=== PATIENT | female | born 1995 | race Caucasian/White ===

== ENCOUNTER 2017-01-03 02:52 | Emergency (ER) | payer OTHER ==
[~2017-01-03 02:52] MED LIST: ALBU1AER INH
[2017-01-03 02:58] VITALS: BP 105/58; PULSE 85; RESP 18; TEMP 98; O2SAT 98
[2017-01-03] MEDS ORDERED: MORPHINE SULFATE 4 MG/ML INJ IV ONE (03:15)
[2017-01-03] MEDS ORDERED: ONDANSETRON HCL 4 MG/2 ML VIAL IV PUSH ONE (03:15)
[2017-01-03] MEDS ORDERED: methylPREDNISolone SOD SUCC 125 MG/2 ML VIAL IVP ONE (03:15)
[2017-01-03] MEDS ORDERED: SODIUM CHLORIDE 0.9% FLUSH 10 ML FLUSH IVF PRN (03:15)
--- NOTE | 2017-01-03 03:16 | PD ---
HPI . Chest pain Chief Complaint: Respiratory Distress Time Seen by Provider: 03:08 Travel History International Travel<30 days: No Contact w/Intl Traveler<30days: No Traveled to known affect area: No History of Present Illness HPI Patient presents to us by [facility] with the chief complaint of chest pain which awakened her from sleep. She states that that was about an hour and a half ago. She describes a sharp pain in the center of her chest. She states that it is "unbearable.". She states he is exacerbated by breathing. It is associated with a cough which started about the same time. The cough is nonproductive. She has not been running a fever. Patient reports a history of "bronchitis." She states that she has not used an inhaler in several months. [facility] Past Medical History Medical History: Denies Significant Hx ADHD: No Weight (Kg): 2 Cancer: No Cardiovascular Problems: No Diabetes: No Diminished Hearing: No Headaches: No Psychiatric: No Immunizations Current: Yes Migraines: No Seizures: No Thyroid Disease: No Ulcer: No Tetanus Vaccination: Never Vaccinated ?: Not LMP: 01/03/17 Past Surgical History Surgical History: No Previous Surgery Section: Yes Other Surgery: No Social History Alcohol Use: No Tobacco Use: No (quit last year) Substance Use: No (DENIES BUT HAS H/O) Allergies-Medications (Allergen,Severity, Reaction): Coded Allergies: Penicillin (Unverified Allergy, Unknown, 01/03/17) Reported Meds & Prescriptions Reported Meds & Active Scripts Active Review of Systems Except as stated in HPI: all other systems reviewed are Neg General / Constitutional: No: Fever, Chills Cardiovascular: Positive: Chest Pain or Discomfort Respiratory: Positive: Cough Physical Exam Narrative GENERAL: Very persistent asthmatic sounding cough. SKIN: Warm and dry. HEAD: Atraumatic. Normocephalic. EYES: Pupils equal and round. Extraocular movements are intact. ENT: No nasal bleeding or discharge. Mucous membranes pink and moist. NECK: Trachea midline. Neck is supple. CARDIOVASCULAR: Regular rate and rhythm. Heart sounds are normal. RESPIRATORY: No accessory muscle use. Her lungs sounded clear. Chest wall is tender to palpation. GASTROINTESTINAL: Abdomen soft, non-tender, nondistended. MUSCULOSKELETAL: No obvious deformities. No edema. NEUROLOGICAL: Awake and alert. No obvious cranial nerve deficits. Motor grossly within normal limits. Normal speech. PSYCHIATRIC: Appropriate mood and affect; insight and judgment normal. Data Data Last Documented VS Vital Signs Date Time Temp Pulse Resp B/P Pulse Ox O2 Delivery O2 Flow Rate FiO2 01/03/17 05:00 Room Air 01/03/17 04:53 92 108/65 97 01/03/17 03:25 19 01/03/17 02:58 98.0 Orders Basic Metabolic Panel (Bmp) (01/03/17 03:08) Complete Blood Count With Diff (01/03/17 03:08) Iv Access Insert/Monitor (01/03/17 03:08) Oximetry (01/03/17 03:08) Oxygen Administration (01/03/17 03:08) Methylprednisolone So Succ Inj (Solumedr (01/03/17 03:15) Albuterol-Ipratropium Neb (Duoneb Neb) (01/03/17 03:15) Sodium Chloride 0.9% Flush (Ns Flush) (01/03/17 03:15) Morphine Inj (Morphine Inj) (01/03/17 03:15) Ondansetron Inj (Zofran Inj) (01/03/17 03:15) Ct Pulmonary Angiogram (01/03/17 03:08) Ed Urine Pregnancytest Poc (01/03/17 03:08) Iohexol 350 Inj (Omnipaque 350 Inj) (01/03/17 04:36) Ketorolac Inj (Toradol Inj) (01/03/17 05:00) Labs Laboratory Tests Test 01/03/17 03:00 White Blood Count 9.2 TH/MM3 Red Blood Count 5.13 MIL/MM3 Hemoglobin 15.2 GM/DL Hematocrit 44.9 % Mean Corpuscular Volume 87.5 FL Mean Corpuscular Hemoglobin 29.6 PG Mean Corpuscular Hemoglobin 33.8 % Concent Red Cell Distribution Width 13.1 % Platelet Count 303 TH/MM3 Mean Platelet Volume 8.3 FL Neutrophils (%) (Auto) 55.2 % Lymphocytes (%) (Auto) 36.1 % Monocytes (%) (Auto) 4.7 % Eosinophils (%) (Auto) 3.1 % Basophils (%) (Auto) 0.9 % Neutrophils # (Auto) 5.1 TH/MM3 Lymphocytes # (Auto) 3.3 TH/MM3 Monocytes # (Auto) 0.4 TH/MM3 Eosinophils # (Auto) 0.3 TH/MM3 Basophils # (Auto) 0.1 TH/MM3 CBC Comment DIFF FINAL Differential Comment Sodium Level 143 MEQ/L Potassium Level 3.5 MEQ/L Chloride Level 108 MEQ/L Carbon Dioxide Level 25.1 MEQ/L Anion Gap 10 MEQ/L Blood Urea Nitrogen 7 MG/DL Creatinine 0.95 MG/DL Estimat Glomerular Filtration 76 ML/MIN Rate Random Glucose 108 MG/DL Calcium Level 9.1 MG/DL MDM Medical Decision Making Medical Screen Exam Complete: Yes Emergency Medical Condition: Yes Medical Record Reviewed: Yes (records reveal a history of asthma. She was here in the fall with an exacerbation of asthma. Admission was recommended. However, she signed out AMA.) Differential Diagnosis Differential diagnosis of chest pain includes but is not limited to musculoskeletal pain, pulmonary embolism, acute coronary syndrome, pneumonia, pleurisy Narrative Course Patient presents to us via [facility] with chief complaint of chest pain. She reports that the pain is exacerbated by breathing. The patient has a very persistent cough. She also has tenderness to palpation. I suspect that her chest pain is musculoskeletal related to the cough. She will be evaluated for possible pneumonia, pneumothorax, pulmonary embolism. In the meantime, she will be treated for bronchospasm with nebs and steroids. CBC & BMP Diagram 01/03/17 03:[address] Angiography 01/03/17 0308 Signed Impressions: Service Date/Time: Tuesday, January 03, 2017 04:16 - CONCLUSION: 1. No evidence of pulmonary embolism. Naresh Tolbert MD Diagnosis Primary Impression: Chest wall pain Additional Impression: Bronchospasm Patient Instructions: Bronchospasm (DC), Chest Wall Pain (ED), General Instructions, Narcotic given in the ED Med/Other Pt SpecificInfo: Prescription(s) given Scripts Tramadol (Ultram)50 Mg Tab50 Mg PO Q4H PRN (PAIN) #12 TAB Ref 0 Prov:Hilary German MD 01/03/17 Ibuprofen 800 Mg Ecr455 Mg PO Q8H PRN (Pain/Inflammation) #60 TAB Ref 0 Prov:Hilary German MD 01/03/17 Prednisone 20 Mg Tab60 Mg PO DAILY 5 Days Ref 0 Prov:Hilary German MD 01/03/17 Albuterol 18 GM Inh (Ventolin Hfa 18 GM Inh)90 Mcg/Act Aer2 Puff INH Q4H PRN ( SHORTNESS OF BREATH) #1 INHALER Ref 0 Prov:Hilary German MD 01/03/17 Disposition: 01 DISCHARGE HOME Condition: Stable Hilary German MD January 03, 2017 03:16
[2017-01-03] MEDS: RESP: ALBUTEROL 2.5 MG/IPRATROPIUM 0.5 MG NEB (SCH) INH ×3 (03:18→03:34)
[2017-01-03 03:25] VITALS: BP 107/57; PULSE 77; RESP 19; O2SAT 99
[2017-01-03 03:48] LABS: AUTOMATED NEUTROPHIL # 5.1 TH/MM3 (1.8-7.7); BASOPHIL # 0.1 TH/MM3 (0-0.2); BASOPHIL % 0.9 % (0.0-2.0); EOSINOPHIL # 0.3 TH/MM3 (0-0.4); EOSINOPHIL % 3.1 % (0.0-4.0); HEMATOCRIT 44.9 % (35.0-46.0); HEMO FLAGS DIFF FINAL; LYMPH % 36.1 % (9.0-44.0); LYMPHOCYTE # 3.3 TH/MM3 (1.0-4.8); MEAN CELL VOLUME 87.5 FL (80.0-100.0); MEAN CORPUSCULAR HEMOGLOBIN 29.6 PG (27.0-34.0); MEAN CORPUSCULAR HGB CONC 33.8 % (32.0-36.0); MONO % 4.7 % (0.0-8.0); NEUT % 55.2 % (16.0-70.0); PLATELET COUNT 303 TH/MM3 (150-450); RED BLOOD COUNT 5.13 MIL/MM3 (4.00-5.30); RED CELL DISTRIBUTION WIDTH 13.1 % (11.6-17.2); WHITE BLOOD COUNT 9.2 TH/MM3 (4.0-11.0)
[2017-01-03 04:01] LABS: POTASSIUM 3.5 MEQ/L (3.5-5.1)
[2017-01-03 04:04] LABS: BICARBONATE 25.1 MEQ/L (21.0-32.0)
[2017-01-03] MEDS ORDERED: IOHEXOL 350 MG/ML 10 ML VIAL (for RAD DIAG) IV ONE (04:36)
[2017-01-03 04:53] VITALS: BP 108/65; PULSE 92; O2SAT 97
[2017-01-03] MEDS ORDERED: KETOROLAC TROMETHAMINE 30 MG/ML (IVP) VIAL IV PUSH ONE (05:00)
--- NOTE | 2017-01-03 05:09 | RADHPO ---
EXAM DATE/TIME: 01/03/2017 04:16 [place] COMPARISON: No previous studies available for comparison. INDICATIONS : Shortness of breath. Chest pain. IV CONTRAST: 75 cc Omnipaque 350 (iohexol) IV RADIATION DOSE: 19.73 CTDIvol (mGy) MEDICAL HISTORY : None SURGICAL HISTORY : None. ENCOUNTER: Initial ACUITY: 1 day PAIN SCALE: 9/10 LOCATION: chest Mid TECHNIQUE: Volumetric scanning of the chest was performed using a pulmonary embolism protocol MIP images were re constructed. Using automated exposure control and adjustment of the mA and/or kV according to patien t size, radiation dose was kept as low as reasonably achievable to obtain optimal diagnostic quality images. FINDINGS: Examination of the pulmonary vasculature demonstrates good filling of the main, lobar and segmental b ranches. There are no filling defects to suggest pulmonary embolism. Multiplanar reconstructions are also unremarkable. Examination of the lung rai demonstrates no evidence of pulmonary nodule. No pleural fluid is iden tified. Examination of the mediastinum demonstrates no abnormally enlarged lymph nodes by CT criteria . No axillary or hilar abnormalities are identified. Coronary artery calcifications are not present. The visualized upper abdomen demonstrates no abnormality. CONCLUSION: 1. No evidence of pulmonary embolism. Naresh Tolbert MD on January 03, 2017 at 5:06 Board Certified Radiologist. This report was verified electronically.
[2017-01-03] MEDS ORDERED: VENTAER INH (05:31)
[2017-01-03] MEDS ORDERED: PRED20 PO (05:31)
[2017-01-03] MEDS ORDERED: IBUP800T23 PO (05:31)
[2017-01-03] MEDS ORDERED: ULTR50TA5 PO (05:31)
[2017-01-03 05:39] VITALS: BP 113/50
== END 2017-01-03 05:47 | disposition home or self-care (01) ==
LOC: PHED 02:52
DX: R07.89 Other chest pain (principal); J98.01 Acute bronchospasm; R05 Cough; Z87.891 Personal history of nicotine dependence
CPT/HCPCS: 71275; 80048; 84703; 85025; 94640; 94664; 96374; 96375; 99284; J1885; J2270; J2405; J2930; Q9967

== ENCOUNTER 2017-01-29 12:37 | Emergency (ER) | payer OTHER ==
[~2017-01-29] VITALS: Ht 162.6 cm; Wt 97.5 kg
[~2017-01-29 12:37] MED LIST changes: -ALBU1AER INH; +IBUP800T23 PO; +PRED20 PO; +ULTR50TA5 PO; +VENTAER INH
[2017-01-29 12:40] VITALS: BP 131/66; PULSE 77; RESP 15; TEMP 97.8; O2SAT 99
[2017-01-29 13:25] LABS: BLOOD, URINE LARGE (NEG); GLUCOSE,URINE NEG (NEG); KETONE, URINE TRACE mg/dL (NEG); NITRITE,URINE NEG (NEG)
--- NOTE | 2017-01-29 13:49 | PD ---
HPI Chief Complaint: Abdominal Pain Time Seen by Provider: 12:51 Travel History International Travel<30 days: No Contact w/Intl Traveler<30days: No Traveled to known affect area: No History of Present Illness HPI 21-year-old female complains of generalized abdominal pain for a few days. She had blood in her urine for 2 days as well. She describes it as a dark red color. When mixed with stool it appears as though the stool itself is blood noted. She denies an association with menstruation and the apparent hematuria. LMP 2.5 weeks prior was normal. Blood appeared very dark this morning states patient. PFSH Past Medical History ADHD: No Weight (Kg): 2 Cancer: No Cardiovascular Problems: No Diabetes: No Diminished Hearing: No Headaches: No Kidney Stones: Yes Psychiatric: No Immunizations Current: Yes Migraines: No Seizures: No Thyroid Disease: No Ulcer: No Tetanus Vaccination: Unknown Influenza Vaccination: No ?: Unknown LMP: 2.5 WEEKS Past Surgical History Section: Yes Other Surgery: No Social History Alcohol Use: No Tobacco Use: Yes (1PPWEEK) Substance Use: No (DENIES BUT HAS H/O) Allergies-Medications (Allergen,Severity, Reaction): Coded Allergies: Penicillin (Unverified Allergy, Unknown, 01/29/17) Reported Meds & Prescriptions Reported Meds & Active Scripts Active Bentyl (Dicyclomine HCl) 10 Mg Cap 10 Mg PO TID PRN Review of Systems Except as stated in HPI: all other systems reviewed are Neg General / Constitutional: No: Fever, Chills Gastrointestinal: Positive: Abdominal Pain Genitourinary: Positive: Hematuria Physical Exam Narrative GENERAL: 21 yo F, WNWD, NAD SKIN: Warm and dry. HEAD: Atraumatic. Normocephalic. EYES: Pupils equal and round. No scleral icterus. No injection or drainage. ENT: No nasal bleeding or discharge. Mucous membranes pink and moist. NECK: Trachea midline. No JVD. CARDIOVASCULAR: Regular rate and rhythm. RESPIRATORY: No accessory muscle use. Clear to auscultation. Breath sounds equal bilaterally. GASTROINTESTINAL: Soft. Mild generalized non-specific abdominal tenderness. Minimal TTP L flank. MUSCULOSKELETAL: Extremities without clubbing, cyanosis, or edema. No obvious deformities. NEUROLOGICAL: Awake and alert. No obvious cranial nerve deficits. Motor grossly within normal limits. Five out of 5 muscle strength in the arms and legs. Normal speech. PSYCHIATRIC: Appropriate mood and affect; insight and judgment normal. Data Data Last Documented VS Vital Signs Date Time Temp Pulse Resp B/P Pulse Ox O2 Delivery O2 Flow Rate FiO2 01/29/17 13:02 16 01/29/17 12:40 97.8 77 131/66 99 VS reviewed Orders Urinalysis - C+S If Indicated (01/29/17 12:53) Ed Urine Pregnancytest Poc (01/29/17 13:39) Complete Blood Count With Diff (01/29/17 13:57) Comprehensive Metabolic Panel (01/29/17 13:57) Iv Access Insert/Monitor (01/29/17 13:57) Ecg Monitoring (01/29/17 13:57) Oximetry (01/29/17 13:57) Sodium Chlor 0.9% 1000 Ml Inj (Ns 1000 M (01/29/17 13:57) Sodium Chloride 0.9% Flush (Ns Flush) (01/29/17 14:00) Labs Laboratory Tests Test 01/29/17 01/29/17 13:19 14:05 Urine Collection Type CLEAN CATCH Urine Color BROWN Urine Turbidity MARKED Urine pH 5.0 Urine Specific [place] 1.020 Urine Protein 100 mg/dL Urine Glucose (UA) NEG mg/dL Urine Ketones TRACE mg/dL Urine Occult Blood LARGE Urine Nitrite NEG Urine Bilirubin NEG Urine Leukocyte Esterase NEG Urine RBC INNUM /hpf Urine Squamous Epithelial 6-8 /hpf Cells Urine Amorphous Sediment MOD Microscopic Urinalysis Comment CULT NOT INDICATED Urine Collection Time 1319 White Blood Count 7.4 TH/MM3 Red Blood Count 4.69 MIL/MM3 Hemoglobin 14.1 GM/DL Hematocrit 41.0 % Mean Corpuscular Volume 87.4 FL Mean Corpuscular Hemoglobin 30.0 PG Mean Corpuscular Hemoglobin 34.3 % Concent Red Cell Distribution Width 12.5 % Platelet Count 237 TH/MM3 Mean Platelet Volume 8.0 FL Neutrophils (%) (Auto) 61.6 % Lymphocytes (%) (Auto) 29.5 % Monocytes (%) (Auto) 6.5 % Eosinophils (%) (Auto) 1.7 % Basophils (%) (Auto) 0.7 % Neutrophils # (Auto) 4.4 TH/MM3 Lymphocytes # (Auto) 2.2 TH/MM3 Monocytes # (Auto) 0.5 TH/MM3 Eosinophils # (Auto) 0.1 TH/MM3 Basophils # (Auto) 0.1 TH/MM3 CBC Comment DIFF FINAL Differential Comment Sodium Level 142 MEQ/L Potassium Level 3.9 MEQ/L Chloride Level 111 MEQ/L Carbon Dioxide Level 23.9 MEQ/L Anion Gap 7 MEQ/L Blood Urea Nitrogen 8 MG/DL Creatinine 0.79 MG/DL Estimat Glomerular Filtration 94 ML/MIN Rate Random Glucose 96 MG/DL Calcium Level 8.9 MG/DL Total Bilirubin 0.3 MG/DL Aspartate Amino Transf 15 U/L (AST/SGOT) Alanine Aminotransferase 32 U/L (ALT/SGPT) Alkaline Phosphatase 65 U/L Total Protein 7.1 GM/DL Albumin 3.7 GM/DL MDM Medical Decision Making Medical Screen Exam Complete: Yes Emergency Medical Condition: Yes Medical Record Reviewed: Yes Differential Diagnosis Constipation, Gastritis, Acute Cholecystitis, Biliary Colic, Pancreatitis, ROSAS , Hepatitis, Bowel Obstruction, Cystitis, Mesenteric Ischemia, AAA, Appendicitis , Renal Stone/Hydronephrosis, GERD, perforated viscous Narrative Course CBC & BMP Diagram 01/29/17 14:05 LFTs normal UA: No UTI Upon reassessment at 1500 pt found comfortably sitting. The patient is resting comfortably, is alert and in no distress. The patients results and examination findings were discussed. The history, exam, diagnostic testing, and current condition do not suggest any significant pathology to warrant further testing, continued ED treatment, admission, or surgical evaluation at this point. The vital signs have been stable. The patient does not have uncontrollable pain, intractable vomiting, or other significant symptoms. The patient's condition is stable and appropriate for discharge. The patient will pursue further outpatient evaluation with a primary care physician or other designated or consulting physician as indicated in the discharge instructions. The patient expressed understanding and was agreeable with this plan. Diagnosis Primary Impression: Hematuria Referrals: Primary Care Physician 2 days Additional Instructions: You have a choice when it comes to health care, and we are glad that you chose [facility]. Hopefully, we have met your expectations on today's visit. You are welcome to return to [facility] at any time, as we are committed to meeting the health care needs of our community. Med/Other Pt SpecificInfo: Prescription(s) given Scripts Dicyclomine (Bentyl)10 Mg Cap10 Mg PO TID PRN (Bowel Management) #10 CAP Ref 0 Prov:Guerrero Alegre MD 01/29/17 Disposition: 01 DISCHARGE HOME Condition: Stable Guerrero Alegre MD January 29, 2017 13:49 Guerrero Alegre MD January 29, 2017 13:49 Guerrero Alegre MD January 29, 2017 13:49
[2017-01-29 13:53] LABS: METHOD OF COLLECTION CLEAN CATCH
[2017-01-29 13:54] LABS: COMMENT (UR) CULT NOT INDICATED; CULTURE IF INDICATED CULT NOT INDICATED; RBC, URINE INNUM /hpf (0-3); URINE COLOR BROWN (YELLW/STRAW)
[2017-01-29] MEDS ORDERED: SODIUM CHLOR 0.9% 1000 ML INJ 1,000 ML IV SCH (13:57)
[2017-01-29] MEDS ORDERED: SODIUM CHLORIDE 0.9% FLUSH 10 ML FLUSH IV FLUSH PRN (14:00)
[2017-01-29 14:18] LABS: AUTOMATED NEUTROPHIL # 4.4 TH/MM3 (1.8-7.7); BASOPHIL # 0.1 TH/MM3 (0-0.2); BASOPHIL % 0.7 % (0.0-2.0); EOSINOPHIL # 0.1 TH/MM3 (0-0.4); EOSINOPHIL % 1.7 % (0.0-4.0); HEMO FLAGS DIFF FINAL; LYMPH % 29.5 % (9.0-44.0); LYMPHOCYTE # 2.2 TH/MM3 (1.0-4.8); MEAN CELL VOLUME 87.4 FL (80.0-100.0); MEAN CORPUSCULAR HGB CONC 34.3 % (32.0-36.0); MONO % 6.5 % (0.0-8.0); NEUT % 61.6 % (16.0-70.0); PLATELET COUNT 237 TH/MM3 (150-450); RED BLOOD COUNT 4.69 MIL/MM3 (4.00-5.30); RED CELL DISTRIBUTION WIDTH 12.5 % (11.6-17.2); WHITE BLOOD COUNT 7.4 TH/MM3 (4.0-11.0)
[2017-01-29 14:45] LABS: CHLORIDE 111 MEQ/L (98-107); POTASSIUM 3.9 MEQ/L (3.5-5.1); SODIUM (NA) 142 MEQ/L (136-145)
[2017-01-29 14:48] LABS: ANION GAP 7 MEQ/L (5-15); BICARBONATE 23.9 MEQ/L (21.0-32.0); BLOOD UREA NITROGEN 8 MG/DL (7-18)
[2017-01-29 14:51] LABS: ALT (GPT) 32 U/L (9-42); AST (GOT) 15 U/L (16-38); GLOMERULAR FILTRATION RATE 94 ML/MIN (>89)
[2017-01-29 14:53] LABS: TOTAL BILIRUBIN ADULT 0.3 MG/DL (0.2-1.0)
[2017-01-29 14:54] LABS: ALKALINE PHOSPHATASE 65 U/L (45-117)
[2017-01-29] MEDS ORDERED: DICY10 PO (15:02)
[2017-01-29 15:23] VITALS: BP 105/64; O2SAT 99
== END 2017-01-29 15:34 | disposition home or self-care (01) ==
LOC: PHED 12:37
DX: R31.9 Hematuria, unspecified (principal); F17.200 Nicotine dependence, unspecified, uncomplicated; Z88.0 Allergy status to penicillin
CPT/HCPCS: 80053; 81001; 84703; 85025; 96360; 99284; J7030

== ENCOUNTER 2017-07-14 22:59 | Emergency (ER) | payer MEDICAID, OTHER ==
[~2017-07-14] VITALS: Ht 162.6 cm; Wt 88.9 kg
[~2017-07-14 22:59] MED LIST changes: +DICY10 PO; -IBUP800T23 PO; -PRED20 PO; -ULTR50TA5 PO; -VENTAER INH
[2017-07-14 23:17] VITALS: BP 122/79; PULSE 82; RESP 18; TEMP 98; O2SAT 97
[2017-07-15 00:52] VITALS: BP 119/70; PULSE 75; RESP 18; TEMP 98; O2SAT 98
--- NOTE | 2017-07-15 00:59 | PD ---
HPI Chief Complaint: Respiratory Symptoms Time Seen by Provider: 00:52 Travel History International Travel<30 days: No Contact w/Intl Traveler<30days: No Traveled to known affect area: No History of Present Illness HPI 21 year-old female presents to the emergency department for complaint of shortness of breath with history of asthma. Patient states her shortness of breath and wheezing is not responding to her inhaler which she is use 4 times today. PFSH Past Medical History ADHD: No Cancer: No Cardiovascular Problems: No Diabetes: No Diminished Hearing: No Headaches: No Kidney Stones: Yes Psychiatric: No Immunizations Current: Yes Migraines: No Seizures: No Thyroid Disease: No Ulcer: No Past Surgical History Section: Yes Other Surgery: No Social History Alcohol Use: No Tobacco Use: Yes (1PPWEEK) Substance Use: No (DENIES BUT HAS H/O) Allergies-Medications (Allergen,Severity, Reaction): Coded Allergies: penicillin G (Unverified Allergy, Unknown, 07/15/17) Reported Meds & Prescriptions Reported Meds & Active Scripts Active No Active Prescriptions or Reported Medications Review of Systems Except as stated in HPI: all other systems reviewed are Neg Physical Exam Narrative GENERAL: Well-developed well-nourished female in no acute distress no respiratory distress no stridor or hoarseness SKIN: Warm and dry. HEAD: Normocephalic. EYES: No scleral icterus. No injection or drainage. NECK: Supple, trachea midline. No JVD or lymphadenopathy. CARDIOVASCULAR: Regular rate and rhythm without murmurs, gallops, or rubs. RESPIRATORY: Breath sounds equal bilaterally mildly diminished. No accessory muscle use. GASTROINTESTINAL: Abdomen soft, non-tender, nondistended. MUSCULOSKELETAL: No cyanosis, or edema. BACK: Nontender without obvious deformity. No CVA tenderness. Data Data Last Documented VS Vital Signs Date Time Temp Pulse Resp B/P (MAP) Pulse Ox O2 Delivery O2 Flow Rate FiO2 07/15/17 01:03 18 98 Room Air 07/15/17 00:52 98.0 75 119/70 (86) Orders Orders Ed Urine Pregnancytest Poc (07/15/17 00:52) Albuterol-Ipratropium Neb (Duoneb Neb) (07/15/17 01:00) Albuterol-Ipratropium Neb (Duoneb Neb) (07/15/17 02:45) Prednisone (Deltasone) (07/15/17 02:45) MDM Medical Decision Making Medical Screen Exam Complete: Yes Emergency Medical Condition: Yes Medical Record Reviewed: Yes Interpretation(s) POC hCG negative Differential Diagnosis Dyspnea, exacerbation asthma, bronchitis, pneumonia, PE Narrative Course At 2:30 AM patient is clinically improved although some wheezing persists therefore additional reading treatment administered and patient is stable for outpatient management. [id number] hCG is negative. Patient given an oral dose of prednisone and will be prescribed a Medrol Dosepak at discharge patient has adequate albuterol inhaler quantity available as outpatient medication at this time. Diagnosis Primary Impression: Asthma exacerbation Referrals: Primary Care Physician call for appointment Dinkey Engine Operator call for appointment Patient Instructions: General Instructions Med/Other Pt SpecificInfo: Prescription(s) given Scripts Methylprednisolone Dosepak (Medrol Dosepak) 4 Mg Dspk 4 MG PO DIRECTED, #1 DSPK 0 Refills Per Pharmacist direction Prov: Carmen Thomas MD 07/15/17 Disposition: DISCHARGE HOME Condition: Stable Carmen Thomas MD Jul 15, 2017 00:59
[2017-07-15] MEDS: RESP: ALBUTEROL 2.5 MG/IPRATROPIUM 0.5 MG NEB (SCH) INH ×2 (01:01→01:10)
[2017-07-15 02:38] VITALS: BP 131/82; PULSE 84; RESP 18; O2SAT 97
[2017-07-15] MEDS ORDERED: MEDR4PAK PO (02:38)
[2017-07-15] MEDS ORDERED: RESP: ALBUTEROL 2.5 MG/IPRATROPIUM 0.5 MG NEB (SCH) NEB ONE (02:45)
[2017-07-15] MEDS ORDERED: predniSONE 50 MG TAB PO ONE (02:45)
== END 2017-07-15 03:03 | disposition home or self-care (01) ==
LOC: PHED 22:59
DX: J45.901 Unspecified asthma with (acute) exacerbation (principal); Z72.0 Tobacco use; Z87.09 Personal history of other diseases of the respiratory system; Z87.442 Personal history of urinary calculi
CPT/HCPCS: 84703; 94640; 94664; 99285; J7512

== ENCOUNTER 2018-04-19 06:19 | Observation (INO) ==
[2018-04-19] MEDS ORDERED: MethylPREDNISolone Sod Succinate Inj 125 MG/2 ML Vial IV.PUSH ONE (06:30)
--- NOTE | 2018-04-19 06:37 | ED ---
HPI General Chief Complaint: Respiratory Symptoms Stated Complaint: Hard to breathe x 1 day Time Seen by Provider: 04/19/18 06:31 Source: patient Mode of arrival: ambulatory History of Present Illness HPI Narrative: 22 y/o female notes cough and congestion for the past couple days. she is out of her inhaler MD complaint: shortness of breath Onset (ago): day(s) Severity: moderate Associated symptoms: productive cough Related Data Current Asthma Therapy: none Home Medications Medication Instructions Recorded Confirmed No Known Home Medications 04/19/18 04/19/18 Allergies Allergy/AdvReac Type Severity Reaction Status Date / Time penicillin G Allergy Unknown Rash Verified 04/19/18 10:55 Review of Systems ROS: all other systems reviewed are negative Constitutional Denies fever(s) Eyes Denies change in vision ENT Denies headache(s) and Denies nasal congestion Cardiovascular Denies chest pain Respiratory Denies dyspnea Gastrointestinal Denies abdominal pain Genitourinary Denies difficulty voiding Musculoskeletal Denies myalgias Integumentary/Breasts Denies rash Neurologic Denies headache(s) Psychiatric Denies depression Endocrine Denies polyuria Hematologic/Lymphatic Denies easy bruising [facility] Medical History Medical History Asthma (Acute) Tobacco abuse (Acute) Surgical History Surgical History No history of previous surgery (Acute) Family History Family History Mother History of asthma Social History Social History Substance History: No History of Abuse Second Hand Smoke Exposure: No Smoking Status: Current every day smoker Tobacco Type: Cigarettes Packs Per Day: 0.25 Cigarettes Per Day: 5.0 Years Smoked: 7 Pack-Years: 1.75 How Often Do You Have a Drink Containing Alcohol: Never Recent Travel in [facility] within the Last 8 Weeks: No Recent Out of Country Travel within the Last 8 Weeks: No Exam Const General: no acute distress HENMT Head: normocephalic and atraumatic Nose: no nasal discharge and no epistaxis Mouth: moist mucous membranes Eyes Sclera: normal sclerae Pupils: PERRL Neck Neck: trachea midline and no JVD Resp Effort & Inspection: no use of accessory muscles Auscultation: wheezes Cardio Rate: regular rate Rhythm: regular rhythm Heart Sounds: no murmurs Skin General: dry skin (warm) Neuro General: alert and awake Cranial Nerves: other Speech: speech normal Motor: no movement abnormalities noted Extrem General: normal to inspection, no clubbing, no cyanosis and no edema Psych Mood: congruent mood Affect: normal affect Judgment: judgment good Course Initial Documented Vital Signs Temperature 98.2 F 04/19/18 06:30 Pulse Rate 84 04/19/18 06:30 Respiratory Rate 18 04/19/18 06:30 Blood Pressure 150/85 H 04/19/18 06:30 Pulse Oximetry 93 L 04/19/18 06:30 Last Documented Vital Signs Temperature 98.3 F 04/19/18 20:00 Pulse Rate 117 H 04/19/18 22:09 Respiratory Rate 20 04/19/18 22:09 Blood Pressure 145/66 H 04/19/18 20:00 Pulse Oximetry 93 L 04/19/18 20:00 Sign Out Sign Out Data: Patient Sign Out occurred on 04/19/18 at 06:56. Patient's care was discussed, and care was transferred from Neva Kahn MD to Barbara Gunderson DO. Sign Out Comment: follow workup and reevaluate after nebs and steriods Last updated by Neva Kahn MD at 04/19/18 06:32 Post-Handoff Eval: Received sign out from previous team to reevaluate patient after 2 duonebs and methylprednisolone. Pt is still feeling sob and now saturating at 89-90% on RA. Pt does have mild wheezing but does not feel better after treatment. No PE risk factors but she is hypoxic and CXR is negative. Will do CTA to r/o PE. Labs reviewed, no leukocytosis. H/H elevated at 15.8/46.4. BMP unremarkable. Negative influenza. negative. CTA showed mild patchy bilateral perihilar airspace infiltrates. No PE. Pt reevaluated after 3rd duoneb and still does not feel better. She is saturating at 92-93% on 2L NC. Blood cultures obtain and pt given NS IVF, ceftriaxone and azithromycin. Discussed with Dr. Moe and accepted to his service. Medical Decision Making MDM Narrative Medical decision making narrative: will check labs, cxr and dose with duonebs and solumedrol and reassess Medical Screen Exam Complete: Yes Emergency Medical Condition: Yes Differential Diagnosis Differential Diagnosis: asthma exacerbation, pneumonia, uri Lab Data Result diagrams: 04/19/18 06:40 04/19/18 06:40 Lab Results 04/19/18 04/19/18 Range/Units 06:40 06:40 CBC w Diff Auto diff final WBC 9.4 (4.0-11.0) th/mm3 RBC 5.12 (4.00-5.30) mil/mm3 Hgb 15.8 H (11.6-15.3) gm/dL Hct 46.4 H (35.0-46.0) % MCV 90.6 (80.0-100.0) fL MCH 30.8 (27.0-34.0) pg MCHC 34.0 (32.0-36.0) % RDW 12.3 (11.6-17.2) % Plt Count 252 (150-450) th/mm3 MPV 8.3 (7.0-11.0) fL Neut % (Auto) 67.9 (16.0-70.0) % Lymph % (Auto) 19.7 (9.0-44.0) % [place] % (Auto) 6.7 (0.0-8.0) % Eos % (Auto) 2.7 (0.0-4.0) % Baso % (Auto) 3.0 H (0.0-2.0) % Neut # (Auto) 6.4 (1.8-7.7) th/mm3 Lymph # (Auto) 1.8 (1.0-4.8) th/mm3 [place] # (Auto) 0.6 (0.0-0.9) th/mm3 Eos # (Auto) 0.3 (0.0-0.4) th/mm3 Baso # (Auto) 0.3 H (0.0-0.2) th/mm3 WBC Differential . Differential Comment . Sodium 139 (136-145) meq/L Potassium 4.0 (3.5-5.1) meq/L Chloride 108 H (98-107) meq/L Carbon Dioxide 25.1 (21.0-32.0) meq/L Anion Gap 6 (5-15) meq/L BUN 12 (7-18) mg/dL Creatinine 1.00 (0.50-1.00) mg/dL Estimated GFR 71 L (>89) mL/min Random Glucose 107 H (74-106) mg/dL Calcium 9.5 (8.5-10.1) mg/dL Imaging Data Radiologist's impression: Chest X-Ray 04/19/18 06:30 CONCLUSION: No acute cardiopulmonary process. Chest CTA 04/19/18 07:12 CONCLUSION: 1. Mild patchy bilateral perihilar airspace infiltrates. 2. No evidence of pulmonary embolism Discharge Plan Discharge Disposition Patient Disposition: 30 Still Patient Discharge Order Discharge Orders: AMA Discharge (Routine); Ordered 04/19/18 Ordered By: Darlin Mike Discharge Details Diagnosis: Pneumonia Physicians Team ED Provider: Barbara Gunderson Primary Care Provider: Primary Care Dang Valdez Attending Provider: Lane Moe Status ED Status: Left Department Discharge Information Discharge Date/Time: 04/19/18 10:05
--- NOTE | 2018-04-19 06:44 | XR ---
EXAM DATE: 04/19/2018 6:41 AM EDT AGE/SEX: 22 years / Female INDICATIONS: . Cough, difficulty breathing, chest pain for 3 days CLINICAL DATA: This is the patient's initial encounter. Patient reports that signs and symptoms have been present for 3 days and indicates a pain score of 5/10. MEDICAL/SURGICAL HISTORY: None. None. COMPARISON: No prior exams available for comparison. FINDINGS: PA and lateral views of the chest demonstrate the lungs to be symmetrically aerated without evidence of mass, infiltrate or effusion. The cardiomediastinal contours are unremarkable. Osseous structures are intact. CONCLUSION: No acute cardiopulmonary process. Electronically signed by: Iron Mason MD 04/19/2018 6:43 AM EDT
[2018-04-19 06:51] LABS: Baso # (Auto) 0.3 th/mm3 (0.0-0.2); Eos # (Auto) 0.3 th/mm3 (0.0-0.4); Eos % (Auto) 2.7 % (0.0-4.0); Hematocrit 46.4 % (35.0-46.0); Hemoglobin 15.8 gm/dL (11.6-15.3); Lymph # (Auto) 1.8 th/mm3 (1.0-4.8); Lymph % (Auto) 19.7 % (9.0-44.0); Mean Corpuscular Hemoglobin 30.8 pg (27.0-34.0); Mean Corpuscular Volume 90.6 fL (80.0-100.0); Mean Platelet Volume 8.3 fL (7.0-11.0); Mono # (Auto) 0.6 th/mm3 (0.0-0.9); Mono % (Auto) 6.7 % (0.0-8.0); Neut # (Auto) 6.4 th/mm3 (1.8-7.7); Neut % (Auto) 67.9 % (16.0-70.0); Platelet Count 252 th/mm3 (150-450); Red Blood Count 5.12 mil/mm3 (4.00-5.30); Red Cell Distribution Width 12.3 % (11.6-17.2); White Blood Count 9.4 th/mm3 (4.0-11.0)
[2018-04-19 07:02] LABS: Calcium 9.5 mg/dL (8.5-10.1)
[2018-04-19 07:03] LABS: Carbon Dioxide 25.1 meq/L (21.0-32.0)
--- NOTE | 2018-04-19 08:26 | CT ---
EXAM DATE: 04/19/2018 8:17 AM EDT AGE/SEX: 22 years / Female INDICATIONS: Difficulty breathing. Chest pain. Cough. CLINICAL DATA: This is the patient's initial encounter. Patient reports that signs and symptoms have been present for 2 days and indicates a pain score of 10/10. MEDICAL/SURGICAL HISTORY: Asthma. None. RADIATION DOSE: 15.45 CTDI (mGy) COMPARISON: [facility], CT PULMONARY ANGIOGRAM, 01/03/2017. . TECHNIQUE: Volumetric scanning was performed using a multi-row detector CT scanner during bolus infu luis alfredo of 75 ml Omnipaque 350 (iohexol) nonionic water-soluble contrast as a single exam dose. The basil a was post processed with a variety of visualization algorithms including full volume maximum intensi ty projection and sliding thin slab reformation. Using automated exposure control and adjustment of the mA and/or kV according to patient size, radiation dose was kept as low as reasonably achievable t o obtain optimal diagnostic quality images. DICOM format image data is available electronically for review and comparison. FINDINGS: Pulmonary Arteries: No filling defects are seen in the pulmonary arteries out to the subsegmental ve ssels. The left and right pulmonary arteries are normal in diameter. Lung: Patchy bilateral primarily perihilar infiltrates. Effusion: None. Mediastinum: No evidence of mediastinal or hilar adenopathy. Other: The axilla is unremarkable. CONCLUSION: 1. Mild patchy bilateral perihilar airspace infiltrates. 2. No evidence of pulmonary embolism Electronically signed by: Iron Wang MD 04/19/2018 8:25 AM EDT
[2018-04-19] MEDS ORDERED: Sod Chloride 0.9% Inj 1,000 ML IV.SIG ONE (08:49)
[2018-04-19] MEDS ORDERED: Azithromycin 250 MG Tablet PO ONE (08:52)
[2018-04-19] MEDS ORDERED: Acetaminophen 325 MG Tablet PO PRN (09:00)
--- NOTE | 2018-04-19 13:19 | P.HP ---
History of Present Illness Primary Care Physician: No Primary Care Physician Chief Complaint: Shortness of breath, dyspnea on exertion History of Present Illness: 22-year-old female with known history of asthma, tobacco use who presented hospital because of shortness of breath and dyspnea. Patient states that her symptoms started approximately 3 days ago with sore throat, cough, congestion progressively got worse to where she had significant shortness of breath, dyspnea on exertion. Patient came to emergency department for evaluation and found to have acute hypoxic respiratory failure. Patient is on 4 L nasal cannula at this time due to acute asthma exacerbation. Patient was given IV steroids, IV antibiotics in the emergency department and recommended admission for further evaluation and management. Patient admits that she does not have any outpatient inhalers. He denies any fever, chills, phlegm production, chest pain, nausea, vomiting - Diagnosis (1) Acute respiratory failure with hypoxia (2) Acute asthma Review of Systems All other systems reviewed negative except as stated in HPI Respiratory: Reports chest congestion, Reports cough, Reports shortness of breath, Reports shortness of breath with activity PMFSH - History History Provided By: Patient - Medical History Medical History: Medical History (Last Updated 04/19/18 @ 13:16 by JAN Ortiz) Asthma Tobacco abuse - Surgical History Surgical History: Surgical History (Last Updated 04/19/18 @ 13:16 by JAN Ortiz) No history of previous surgery - Family History Family History: Family History (Last Updated 04/19/18 @ 13:16 by JAN Ortiz) Mother History of asthma - Tobacco History Second Hand Smoke Exposure: No Tobacco Use In Past 30 Days: Yes Smoking Status: Current every day smoker Tobacco Type: Cigarettes Packs Per Day: 0.25 Years Smoked: 7 - Alcohol History How Often Do You Have a Drink Containing Alcohol: Never - Substance Use History Substance History: No History of Abuse - Travel History Recent Travel in the [place] Within the Last 8 Weeks: No Recent Travel Out of the Country Within the Last 8 Weeks: No - Immunization History Tetanus Immunization: Unsure Hx Influenza Vaccine This Season: No Medications and Allergies Active Medications: Active Medications Acetaminophen (Tylenol) 650 mg PO Q4H PRN PRN Reason: Temp > 100.4 Last Admin: 04/19/18 09:10 Dose: 650 mg Albuterol (Duoneb Neb (Petey)) 1 ampul NEB Q6HR WHILE AWAKE NEB PETEY Last Admin: 04/19/18 11:31 Dose: 1 ampul Azithromycin (Zithromax) 500 mg PO DAILY PETEY Budesonide (Pulmocort Respule Neb) 0.5 mg NEB Q12HR NEB PETEY Ceftriaxone Sodium 1,000 mg/ (Sodium Chloride) 100 mls @ 200 mls/hr IV.SIG ONCE ONE Stop: 04/20/18 09:34 Methylprednisolone Sodium Succinate (Solumedrol Inj) 40 mg IV.PUSH Q8HR PETEY Sodium Chloride (Ns Flush) 2 ml IV.FLUSH PRN PRN PRN Reason: FLUSH AFTER USING IV ACCESS Allergies Allergy/AdvReac Type Severity Reaction Status Date / Time penicillin G Allergy Unknown Rash Verified 04/19/18 10:55 Home Medications Medication Instructions Recorded Confirmed Type No Known Home Medications 04/19/18 04/19/18 History Exam Vital signs: Vital Signs 04/19/18 06:30 04/19/18 06:43 04/19/18 06:47 Temperature 98.2 F Pulse Rate 84 86 88 Respiratory Rate 18 20 20 Blood Pressure 150/85 H Pulse Oximetry 93 L 04/19/18 06:49 04/19/18 07:13 04/19/18 07:19 Temperature Pulse Rate 107 H Respiratory Rate 20 Blood Pressure 129/70 Pulse Oximetry 93 L 90 L 95 04/19/18 07:34 04/19/18 09:34 04/19/18 10:21 Temperature 96.9 F L Pulse Rate 110 H 110 H 110 H Respiratory Rate 20 20 17 Blood Pressure 129/70 130/63 Pulse Oximetry 91 L 94 L 93 L 04/19/18 10:35 04/19/18 11:32 Temperature Pulse Rate Respiratory Rate Blood Pressure Pulse Oximetry 90 L 93 L Intake & Output 04/18/18 04/19/18 04/19/18 18:59 06:59 18:59 Intake Total 1100 / 1100 Balance 1100 / 1100 Weight 85.3 kg 85.4 kg Intake: IV 1100 / 1100 NS Inj 1,000 ML @ Wide Open IV. 1000 / 1000 SIG BOLUS ONE Rx#:[id number] Rocephin Inj 1,000 MG In NS Inj 100 / 100 100 ML @ 200 mls/hr IV.SIG ONCE ONE Rx#:[id number] Narrative: GENERAL: Well-developed, well-nourished, in no acute distress. alert and orientated HEENT: Head is normocephalic without any lesions or masses noted. Facial features are symmetric. Eyes: Pupils equal round reactive to light. Extraocular muscles are intact. Conjunctivae were clear. Oropharyngeal: Pharynx without any erythema edema. Tongue is midline without deviation. Buccal mucosa is moist without any masses or lesions NECK: Supple without any masses. Trachea midline no deviation. No JVD, no bruits are appreciated CARDIAC: Regular rhythm, regular rate. S1/S2 are heard. No murmurs gallops or rubs. LUNGS: Lack of lung sounds in bilateral lower lung rai. No wheeze, rhonchi or rales. No use of accessory muscles on inspiration or expiration. ABDOMEN: Soft, nontender. Nondistended. Bowel sounds heard in all 4 quadrants. No organomegaly or masses. Negative rebound, negative guarding EXTREMITIES: No edema, pulses are equal bilaterally. No cyanosis or clubbing NEUROLOGY: Mood and affect appear appropriate. Cranial nerves II through XII grossly intact. Muscle strength 5/5 in upper and lower extremities bilaterally. Deep tendon reflexes are 2+ in upper and lower extremities bilaterally. Results - Labs CBC & Chem 7: 04/19/18 06:40 04/19/18 06:40 Labs: Laboratory Results - last 24 hr 04/19/18 04/19/18 06:40 06:40 CBC w Diff Auto diff final WBC 9.4 RBC 5.12 Hgb 15.8 H Hct 46.4 H MCV 90.6 MCH 30.8 MCHC 34.0 RDW 12.3 Plt Count 252 MPV 8.3 Neut % (Auto) 67.9 Lymph % (Auto) 19.7 Crook % (Auto) 6.7 Eos % (Auto) 2.7 Baso % (Auto) 3.0 H Neut # (Auto) 6.4 Lymph # (Auto) 1.8 Crook # (Auto) 0.6 Eos # (Auto) 0.3 Baso # (Auto) 0.3 H WBC Differential . Differential Comment . Sodium 139 Potassium 4.0 Chloride 108 H Carbon Dioxide 25.1 Anion Gap 6 BUN 12 Creatinine 1.00 Estimated GFR 71 L Random Glucose 107 H Calcium 9.5 - Imaging Impressions Chest X-Ray 04/19/18 06:30 CONCLUSION: No acute cardiopulmonary process. Chest CTA 04/19/18 07:12 CONCLUSION: 1. Mild patchy bilateral perihilar airspace infiltrates. 2. No evidence of pulmonary embolism Caprini VTE Risk Assessment Caprini VTE Risk Assessment: No/Low Risk (score <= 1) Caprini Risk Assessment Model: Point Value = 1 Point Value = 2 Point Value = 3 Point Value = 5 Age 41-60 Minor surgery BMI > 25 kg/m2 Swollen legs Varicose veins or History of unexplained or recurrent spontaneous Oral contraceptives or hormone replacement Sepsis (< 1 month) Serious lung disease, including pneumonia (< 1 month) Abnormal pulmonary function Acute myocardial infarction Congestive heart failure (< 1 month) History of inflammatory bowel disease Medical patient at bed rest Age 61-74 Arthroscopic surgery Major open surgery (> 45 min) Laparoscopic surgery (> 45 min) Malignancy Confined to bed (> 72 hours) Immobilizing plaster cast Central venous access Age >= 75 History of VTE Family history of VTE Factor V Leiden Prothrombin [id number] Lupus anticoagulant Anticardiolipin antibodies Elevated serum homocysteine Heparin-induced thrombocytopenia Other congenital or acquired thrombophilia Stroke (< 1 month) Elective arthroplasty Hip, pelvis, or leg fracture Acute spinal cord injury (< 1 month) Prophylaxis Regimen: Total Risk Factor Score Risk Level Prophylaxis Regimen 0-1 Low Early ambulation 2 Moderate Order ONE of the following: *Sequential Compression Device (SCD) *Heparin 5000 units SQ BID 3-4 Higher Order ONE of the following medications: *Heparin 5000 units SQ TID *Enoxaparin/Lovenox 40 mg SQ daily (WT < 150 kg, CrCl > 30 mL/min) *Enoxaparin/Lovenox 30 mg SQ daily (WT < 150 kg, CrCl > 10-29 mL/min) *Enoxaparin/Lovenox 30 mg SQ BID (WT < 150 kg, CrCl > 30 mL/min) AND/OR *Sequential Compression Device (SCD) 5 or more Highest Order ONE of the following medications: *Heparin 5000 units SQ TID (Preferred with Epidurals) *Enoxaparin/Lovenox 40 mg SQ daily (WT < 150 kg, CrCl > 30 mL/min) *Enoxaparin/Lovenox 30 mg SQ daily (WT < 150 kg, CrCl > 10-29 mL/min) *Enoxaparin/Lovenox 30 mg SQ BID (WT < 150 kg, CrCl > 30 mL/min) AND *Sequential Compression Device (SCD) Assessment and Plan - Assessment (1) Acute respiratory failure with hypoxia Code(s): J96.01 - Acute respiratory failure with hypoxia Status: Acute (2) Acute asthma Code(s): J45.909 - Unspecified asthma, uncomplicated Status: Acute - Plan Acute hypoxic respiratory failure secondary to asthma exacerbation -Continue O2 sat mentation maintain O2 sats greater than 90% -Continue duo nebs every 6 hours while awake and every 2 hours as needed -Continue budesonide inhalation twice daily -Continue Rocephin and Zithromax -Solu-Medrol 40 mg every 8 hours DVT prevention -Compression devices
[2018-04-19] MEDS ORDERED: guaiFENesin/Codeine Syrup 200 MG/20 MG 10 ML UDC PO ONE (21:30)
[2018-04-19] MEDS ORDERED: MethylPREDNISolone Sod Succinate Inj 40 MG/ML Vial IV.PUSH SCH (22:00)
--- NOTE | 2018-04-19 23:15 | P.AMA ---
AMA Note - AMA Note AMA Statement: Patient Nicki Moreno has decided to leave the hospital against medical advice. This patient has the capacity to refuse care and understands the risks of leaving, including permanent disability and/or , and has had an opportunity to ask questions about his/her condition. The patient has been informed that he/she may return for care at any time, and follow up has been arranged/advised. - AMA Note Discharge Disposition: Left Against Medical Advice
[2018-04-20] MEDS ORDERED: Azithromycin 250 MG Tablet PO SCH (09:00)
== END 2018-04-20 00:21 | disposition left against medical advice (07) ==
LOC: PHEDA 06:19 → PH3 06:19 → PHED 06:19 → PH3 10:01
PROVIDERS: ADMIT Family Medicine; ATTEND Family Medicine

== ENCOUNTER 2018-04-20 18:14 | Inpatient (IN) ==
[2018-04-20] MEDS ORDERED: MethylPREDNISolone Sod Succinate Inj 125 MG/2 ML Vial IV.PUSH ONE (19:29)
--- NOTE | 2018-04-20 20:03 | ED ---
HPI General Chief complaint: Respiratory Symptoms Stated complaint: pneumonia Time Seen by Provider: 04/20/18 19:05 Source: patient, old records reviewed and other (Bystanders) Mode of arrival: ambulatory Limitations: no limitations History of Present Illness HPI narrative: Is a well 22-year-old presents to the emergency department complaining of shortness of breath. Little bit of a complicated social history. Patient was recently admitted for asthma exacerbation and oxygen. She left AMA yesterday because she was worried about losing her. She apparently went to her job today but they would not take her work note and so she was like go. She was found by bystanders on the street, crying. Their names Joseph and Wendi, [phone], [phone]. They brought her back to the emergency department. She still having labored breathing and shortness of breath. She states that she had ripped up her antibiotic. The bystanders are worried about her level of anxiety. Patient states that she is upset about her job. She has never been treated for any mental health problems. No history of anxiety or depression. She lives with her boyfriend, here in [facility]. Her dad is also in [facility] and [place]. Related Data Home Medications Medication Instructions Recorded Confirmed No Known Home Medications 04/19/18 04/20/18 Allergies Allergy/AdvReac Type Severity Reaction Status Date / Time penicillin G Allergy Unknown Rash Verified 04/20/18 18:22 Review of Systems ROS: all other systems reviewed are negative [facility] Medical History Medical History Asthma (Acute) Tobacco abuse (Acute) Surgical History Surgical History No history of previous surgery (Acute) Family History Family History Mother History of asthma Social History Social History Substance History: No History of Abuse Second Hand Smoke Exposure: No Smoking Status: Current every day smoker Tobacco Type: Cigarettes Packs Per Day: 0.25 Cigarettes Per Day: 5.0 Years Smoked: 7 Pack-Years: 1.75 How Often Do You Have a Drink Containing Alcohol: Never Recent Travel in [facility] within the Last 8 Weeks: No Recent Out of Country Travel within the Last 8 Weeks: No Immunization History Tetanus Immunization: >5 Years Hx Influenza Vaccine This Season: No Exam Narrative Exam Narrative: GENERAL: 22-year-old woman, no acute distress. SKIN: Focused skin assessment warm/dry. HEAD: Atraumatic. Normocephalic. EYES: Pupils equal and round. No scleral icterus. No injection or drainage. ENT: No nasal bleeding or discharge. Mucous membranes pink and moist. NECK: Trachea midline. No JVD. CARDIOVASCULAR: Regular rate and rhythm. No murmur appreciated. RESPIRATORY: Moderate labored breathing, speaks in short sentences. Moderate diffuse wheezing. GASTROINTESTINAL: Abdomen soft, non-tender, nondistended. Hepatic and splenic margins not palpable. MUSCULOSKELETAL: No obvious deformities. No clubbing. No cyanosis. No edema. NEUROLOGICAL: Awake and alert. No obvious cranial nerve deficits. Motor grossly within normal limits. Normal speech. PSYCHIATRIC: Appropriate mood and affect; insight and judgment normal. Course Initial Documented Vital Signs Temperature 97.6 F 04/20/18 18:22 Pulse Rate 86 04/20/18 18:22 Respiratory Rate 20 04/20/18 18:22 Blood Pressure 126/72 04/20/18 18:22 Pulse Oximetry 91 L 04/20/18 18:22 Last Documented Vital Signs Temperature 97.6 F 04/20/18 18:22 Pulse Rate 97 H 04/20/18 19:41 Respiratory Rate 20 04/20/18 19:41 Blood Pressure 126/72 04/20/18 18:22 Pulse Oximetry 92 L 04/20/18 19:37 Medical Decision Making MDM Narrative Medical decision making narrative: Is a 22-year-old woman with no pneumonia, worsening asthma symptoms, here with persistent tachypnea. She left AMA yesterday. She still having moderate hypoxia, 91-92% on 2 L. Poor social follow-up. Will recommend observation for further treatment for asthma exacerbation and pneumonia with hypoxia. Medical Screen Exam Complete: Yes Emergency Medical Condition: Yes Discharge Plan Discharge Disposition Patient Disposition: 30 Still Patient Physicians Team ED Provider: Bryan Obrien Primary Care Provider: Primary Care Dang Vadlez Rxs /Orders / Referrals /Forms Prescriptions: No Action No Known Home Medications RF: 0 Status ED Status: With Doctor
[2018-04-20] MEDS ORDERED: Acetaminophen 325 MG Tablet PO PRN (20:38)
[2018-04-20] MEDS ORDERED: Bisacodyl 10 MG Supp RECTAL PRN (20:38)
--- NOTE | 2018-04-20 21:06 | XR ---
EXAM DATE: 04/20/2018 8:28 PM EDT AGE/SEX: 22 years / Female INDICATIONS: . Short of breath. CLINICAL DATA: This is the patient's initial encounter. Patient reports that signs and symptoms have been present for 1 day and indicates a pain score of 5/10. MEDICAL/SURGICAL HISTORY: Asthma. None. COMPARISON: [facility], CHEST 2V PA&LAT, 04/19/2018. . FINDINGS: PA and lateral views of the chest demonstrate the lungs to be symmetrically aerated without evidence of mass, infiltrate or effusion. The cardiomediastinal contours are unremarkable. Osseous structures are intact. CONCLUSION: The lungs are clear. Electronically signed by: Edil Strong MD 04/20/2018 9:05 PM EDT
[2018-04-20] MEDS: Azithromycin Inj 500 MG in Sodium Chlor 0.9% Inj 250 ML IV.SIG SCH (21:07)
[2018-04-20] MEDS: Senna/Docusate Sodium 8.6/50 MG Tablet PO SCH (22:41)
[2018-04-21 06:38] LABS: Baso # (Auto) 0.1 th/mm3 (0.0-0.2); Baso % (Auto) 1.4 % (0.0-2.0); Eos % (Auto) 0.1 % (0.0-4.0); Hematocrit 41.8 % (35.0-46.0); Hemoglobin 14.4 gm/dL (11.6-15.3); Lymph % (Auto) 12.2 % (9.0-44.0); Mean Corpuscular HGB Conc 34.5 % (32.0-36.0); Mean Corpuscular Hemoglobin 31.1 pg (27.0-34.0); Mean Corpuscular Volume 90.4 fL (80.0-100.0); Mean Platelet Volume 8.4 fL (7.0-11.0); Mono # (Auto) 0.2 th/mm3 (0.0-0.9); Mono % (Auto) 1.9 % (0.0-8.0); Neut # (Auto) 7.2 th/mm3 (1.8-7.7); Neut % (Auto) 84.4 % (16.0-70.0); Platelet Count 271 th/mm3 (150-450); Red Blood Count 4.63 mil/mm3 (4.00-5.30); Red Cell Distribution Width 12.4 % (11.6-17.2); White Blood Count 8.5 th/mm3 (4.0-11.0)
[2018-04-21 06:45] LABS: Potassium 4.5 meq/L (3.5-5.1)
[2018-04-21 06:49] LABS: Calcium 9.3 mg/dL (8.5-10.1)
[2018-04-21 06:50] LABS: Carbon Dioxide 22.1 meq/L (21.0-32.0)
--- NOTE | 2018-04-21 07:24 | P.HP ---
History of Present Illness Primary Care Physician: No Primary Care Physician Chief Complaint: Shortness of breath History of Present Illness: 22-year-old female with known history of asthma, tobacco use who presented hospital because of shortness of breath and dyspnea. Patient was just admitted to the hospital on 04/19/18. Patient left AGAINST MEDICAL ADVICE because she stated she had to go to work. Patient did not improve. Continue to have worsening shortness of breath and it is status continued to worsen so she came back to emergency department for evaluation. Patient again was found to have acute respiratory failure with hypoxia due to asthma. Patient was given [facility] emergency department without any significant improvement. Patient now with increased O2 demand on simple mask for O2 supplementation. Discussed with the patient the need for her to remain hospitalized this visit because of her worsening respiratory status. Patient does understand. She states that she will comply and accept treatment. - Diagnosis (1) Acute respiratory failure with hypoxia (2) Acute asthma Review of Systems All other systems reviewed negative except as stated in HPI Respiratory: Reports shortness of breath PMFSH - History History Provided By: Patient - Medical History Medical History: Medical History (Last Reviewed 04/21/18 @ 07:25 by JAN Ortiz) Asthma Tobacco abuse - Surgical History Surgical History: Surgical History (Last Reviewed 04/21/18 @ 07:25 by JAN Ortiz) No history of previous surgery - Family History Family History: Family History (Last Reviewed 04/21/18 @ 07:25 by JAN Ortiz) Mother History of asthma - Tobacco History Second Hand Smoke Exposure: Yes Tobacco Use In Past 30 Days: Yes Smoking Status: Current some day smoker Tobacco Type: Cigarettes Packs Per Day: 0.25 Years Smoked: 7 - Alcohol History How Often Do You Have a Drink Containing Alcohol: Never - Substance Use History Substance History: No History of Abuse - Travel History Recent Travel in the [place] Within the Last 8 Weeks: No Recent Travel Out of the Country Within the Last 8 Weeks: No - Immunization History Tetanus Immunization: >5 Years Hx Influenza Vaccine This Season: No Medications and Allergies Active Medications: Active Medications Acetaminophen (Tylenol) 650 mg PO Q4H PRN PRN Reason: Temp > 100.4 Al Hydroxide/Mg Hydroxide (Milk Of Magnesia Liq) 30 ml PO Q12H PRN PRN Reason: Mild Constipation Albuterol (Duoneb Neb (Prn)) 1 ampul NEB Q4HR NEB PRN PRN Reason: SHORTNESS OF BREATH/WHEEZING Last Admin: 04/20/18 23:25 Dose: 1 ampul Bisacodyl (Dulcolax Supp) 10 mg RECTAL DAILY PRN PRN Reason: SEVERE CONSITIPATION Azithromycin 500 mg/ Sodium (Chloride) 250 mls @ 250 mls/hr IV.SIG Q24H [facility] Last Infusion: 04/20/18 22:10 Dose: Infused Ceftriaxone Sodium 1,000 mg/ (Sodium Chloride) 100 mls @ 200 mls/hr IV.SIG Q24H [facility] Last Infusion: 04/21/18 00:46 Dose: Infused Lactulose (Lactulose Liq) 30 ml PO DAILY PRN PRN Reason: SEVERE CONSITIPATION Methylprednisolone Sodium Succinate (Solumedrol Inj) 40 mg IV.PUSH Q12H [facility] Ondansetron HCl (Zofran Inj) 4 mg IV.PUSH Q6H PRN PRN Reason: NAUSEA OR VOMITING Senna/Docusate Sodium (Ann-Colace) 1 tab PO BID [facility] Last Admin: 04/20/18 22:41 Dose: Not Given Sennosides (Senokot) 17.2 mg PO Q12H PRN PRN Reason: Moderate Constipation Sodium Chloride (Ns Flush) 2 ml IV.FLUSH BID [facility] Last Admin: 04/20/18 21:07 Dose: 2 ml Sodium Chloride (Ns Flush) 2 ml IV.FLUSH PRN PRN PRN Reason: FLUSH AFTER USING IV ACCESS Allergies Allergy/AdvReac Type Severity Reaction Status Date / Time penicillin G Allergy Unknown Rash Verified 04/20/18 18:22 Home Medications Medication Instructions Recorded Confirmed Type No Known Home Medications 04/19/18 04/20/18 History Exam Vital signs: Vital Signs 04/20/18 18:22 04/20/18 19:20 04/20/18 19:30 Temperature 97.6 F Pulse Rate 86 97 H 96 H Respiratory Rate 20 22 20 Blood Pressure 126/72 Pulse Oximetry 91 L 04/20/18 19:37 04/20/18 19:41 04/20/18 20:38 Temperature Pulse Rate 97 H 105 H Respiratory Rate 20 20 Blood Pressure Pulse Oximetry 92 L 86 L 04/20/18 20:41 04/20/18 20:58 04/20/18 22:18 Temperature Pulse Rate 89 110 H Respiratory Rate 20 22 Blood Pressure 116/70 Pulse Oximetry 86 L 94 L 04/20/18 22:21 04/20/18 23:29 04/21/18 00:00 Temperature 97.2 F L 97.9 F Pulse Rate 115 H 96 H 111 H Respiratory Rate 18 20 18 Blood Pressure 134/86 128/76 Pulse Oximetry 95 94 L Intake & Output 04/20/18 04/21/18 04/21/18 18:59 06:59 18:59 Intake Total 830 / 830 Balance 830 / 830 Weight 84.8 kg 87 kg Intake: IV 350 / 350 Azithromycin Inj 500 MG In NS 250 / 250 Inj 250 ML @ 250 mls/hr IV.SIG Q24H [facility] Rx#:[id number] Rocephin Inj 1,000 MG In NS Inj 100 / 100 100 ML @ 200 mls/hr IV.SIG Q24H [facility] Rx#:[id number] Oral 480 / 480 Other: # Voids 1 Weight On Admission 86.9 kg Narrative: GENERAL: Well-developed, well-nourished, in no acute distress. alert and orientated HEENT: Head is normocephalic without any lesions or masses noted. Facial features are symmetric. Eyes: Pupils equal round reactive to light. Extraocular muscles are intact. Conjunctivae were clear. Oropharyngeal: Pharynx without any erythema edema. Tongue is midline without deviation. Buccal mucosa is moist without any masses or lesions NECK: Supple without any masses. Trachea midline no deviation. No JVD, no bruits are appreciated CARDIAC: Regular rhythm, regular rate. S1/S2 are heard. No murmurs gallops or rubs. LUNGS: Lack of lung sounds in bilateral lower lung ria. No wheeze, rhonchi or rales. No use of accessory muscles on inspiration or expiration. ABDOMEN: Soft, nontender. Nondistended. Bowel sounds heard in all 4 quadrants. No organomegaly or masses. Negative rebound, negative guarding EXTREMITIES: No edema, pulses are equal bilaterally. No cyanosis or clubbing NEUROLOGY: Mood and affect appear appropriate. Cranial nerves II through XII grossly intact. Muscle strength 5/5 in upper and lower extremities bilaterally. Deep tendon reflexes are 2+ in upper and lower extremities bilaterally. Results - Labs CBC & Chem 7: 04/21/18 06:22 04/21/18 06:22 Labs: Laboratory Results - last 24 hr 04/21/18 04/21/18 06:22 06:22 CBC w Diff Auto diff final WBC 8.5 RBC 4.63 Hgb 14.4 Hct 41.8 MCV 90.4 MCH 31.1 MCHC 34.5 RDW 12.4 Plt Count 271 MPV 8.4 Neut % (Auto) 84.4 H Lymph % (Auto) 12.2 Blair % (Auto) 1.9 Eos % (Auto) 0.1 Baso % (Auto) 1.4 Neut # (Auto) 7.2 Lymph # (Auto) 1.0 Blair # (Auto) 0.2 Eos # (Auto) 0.0 Baso # (Auto) 0.1 WBC Differential . Differential Comment . Sodium 140 Potassium 4.5 Chloride 110 H Carbon Dioxide 22.1 Anion Gap 8 BUN 14 Creatinine 0.84 Estimated GFR 86 L Random Glucose 139 H Calcium 9.3 - Imaging Impressions Chest X-Ray 04/20/18 19:29 CONCLUSION: The lungs are clear. Caprini VTE Risk Assessment Caprini VTE Risk Assessment: No/Low Risk (score <= 1) Caprini Risk Assessment Model: Point Value = 1 Point Value = 2 Point Value = 3 Point Value = 5 Age 41-60 Minor surgery BMI > 25 kg/m2 Swollen legs Varicose veins or History of unexplained or recurrent spontaneous Oral contraceptives or hormone replacement Sepsis (< 1 month) Serious lung disease, including pneumonia (< 1 month) Abnormal pulmonary function Acute myocardial infarction Congestive heart failure (< 1 month) History of inflammatory bowel disease Medical patient at bed rest Age 61-74 Arthroscopic surgery Major open surgery (> 45 min) Laparoscopic surgery (> 45 min) Malignancy Confined to bed (> 72 hours) Immobilizing plaster cast Central venous access Age >= 75 History of VTE Family history of VTE Factor V Leiden Prothrombin [id number] Lupus anticoagulant Anticardiolipin antibodies Elevated serum homocysteine Heparin-induced thrombocytopenia Other congenital or acquired thrombophilia Stroke (< 1 month) Elective arthroplasty Hip, pelvis, or leg fracture Acute spinal cord injury (< 1 month) Prophylaxis Regimen: Total Risk Factor Score Risk Level Prophylaxis Regimen 0-1 Low Early ambulation 2 Moderate Order ONE of the following: *Sequential Compression Device (SCD) *Heparin 5000 units SQ BID 3-4 Higher Order ONE of the following medications: *Heparin 5000 units SQ TID *Enoxaparin/Lovenox 40 mg SQ daily (WT < 150 kg, CrCl > 30 mL/min) *Enoxaparin/Lovenox 30 mg SQ daily (WT < 150 kg, CrCl > 10-29 mL/min) *Enoxaparin/Lovenox 30 mg SQ BID (WT < 150 kg, CrCl > 30 mL/min) AND/OR *Sequential Compression Device (SCD) 5 or more Highest Order ONE of the following medications: *Heparin 5000 units SQ TID (Preferred with Epidurals) *Enoxaparin/Lovenox 40 mg SQ daily (WT < 150 kg, CrCl > 30 mL/min) *Enoxaparin/Lovenox 30 mg SQ daily (WT < 150 kg, CrCl > 10-29 mL/min) *Enoxaparin/Lovenox 30 mg SQ BID (WT < 150 kg, CrCl > 30 mL/min) AND *Sequential Compression Device (SCD) Assessment and Plan - Assessment (1) Acute respiratory failure with hypoxia Code(s): J96.01 - Acute respiratory failure with hypoxia Status: Acute (2) Acute asthma Code(s): J45.909 - Unspecified asthma, uncomplicated Status: Acute - Plan Acute hypoxic respiratory failure secondary to asthma exacerbation -Continue O2 sat mentation maintain O2 sats greater than 92% -Continue duo nebs every 6 hours while awake and every 2 hours as needed -Continue budesonide inhalation twice daily -Continue Rocephin and Zithromax -Solu-Medrol 60 mg every 6 hours DVT prevention -Compression devices
[2018-04-21] MEDS ORDERED: MethylPREDNISolone Sod Succinate Inj 40 MG/ML Vial IV.PUSH SCH (08:00)
[2018-04-21] MEDS: MethylPREDNISolone Sod Succinate Inj 125 MG/2 ML Vial IV.PUSH SCH ×3 (08:34→20:57)
[2018-04-21] MEDS: Senna/Docusate Sodium 8.6/50 MG Tablet PO SCH ×2 (08:36→20:59)
[2018-04-21] MEDS: Ibuprofen 600 MG Tablet PO PRN (15:12)
[2018-04-21] MEDS: Azithromycin Inj 500 MG in Sodium Chlor 0.9% Inj 250 ML IV.SIG SCH (20:58)
[2018-04-21] MEDS ORDERED: guaiFENesin/Codeine Syrup 200 MG/20 MG 10 ML UDC PO ONE (21:18)
[2018-04-22] MEDS: MethylPREDNISolone Sod Succinate Inj 125 MG/2 ML Vial IV.PUSH SCH ×4 (02:05→22:19)
--- NOTE | 2018-04-22 08:25 | P.PN ---
Subjective Interval history: 22-year-old female who is seen and examined today for follow-up on hypoxic respiratory failure secondary to asthma. Patient states that she still having intermittent chest discomfort whenever she takes a deep breath. States that she got some cough medicine last night that did help. Oxygen is continually being weaned. Vital signs are stable. Patient remains afebrile. Physical Exam Vital signs: Vital Signs 04/21/18 11:57 04/21/18 15:42 04/21/18 16:00 Temperature 98.0 F 96.8 F L Pulse Rate 75 88 Respiratory Rate 18 Blood Pressure 117/59 L 128/62 Pulse Oximetry 94 L 93 L 04/21/18 19:55 04/21/18 20:00 04/22/18 00:00 Temperature 97.1 F L 96 F L Pulse Rate 89 95 H 102 H Respiratory Rate 20 Blood Pressure 136/70 134/84 Pulse Oximetry 92 L 90 L 93 L 04/22/18 07:42 Temperature Pulse Rate 78 Respiratory Rate 19 Blood Pressure Pulse Oximetry 93 L Intake & Output 04/21/18 04/22/18 04/22/18 18:59 06:59 18:59 Intake Total 960 / 960 350 / 350 Balance 960 / 960 350 / 350 Weight 84.7 kg Intake: IV 350 / 350 Azithromycin Inj 500 MG In NS 250 / 250 Inj 250 ML @ 250 mls/hr IV.SIG Q24H [facility] Rx#:[id number] Rocephin Inj 1,000 MG In NS Inj 100 / 100 100 ML @ 200 mls/hr IV.SIG Q24H [facility] Rx#:[id number] Oral 960 / 960 Other: # Voids 4 2 Date of Last Bowel Movement 04/21/18 # Bowel Movements 1 Narrative: GENERAL: Well-developed, well-nourished, in no acute distress. alert and orientated HEENT: Head is normocephalic without any lesions or masses noted. Facial features are symmetric. Eyes: Extraocular muscles are intact. Conjunctivae were clear. NECK: Supple without any masses. Trachea midline no deviation. No JVD, CARDIAC: Regular rhythm, regular rate. S1/S2 are heard. No murmurs gallops or rubs. LUNGS: Patient now started to develop lung sounds. Patient with mild wheeze throughout. No rhonchi or rales. No use of accessory muscles on inspiration or expiration. ABDOMEN: Soft, nontender. Nondistended. Bowel sounds heard in all 4 quadrants. No organomegaly or masses. Negative rebound, negative guarding EXTREMITIES: No edema, pulses are equal bilaterally. No cyanosis or clubbing NEUROLOGY: Mood and affect appear appropriate. Cranial nerves II through XII grossly intact. Moving all extremities, speech is clear Results - Labs CBC & Chem 7: 04/21/18 06:22 04/21/18 06:22 Assessment and Plan - Assessment (1) Acute respiratory failure with hypoxia Code(s): J96.01 - Acute respiratory failure with hypoxia Status: Acute (2) Acute asthma Code(s): J45.909 - Unspecified asthma, uncomplicated Status: Acute - Plan Acute hypoxic respiratory failure secondary to asthma exacerbation -Continue O2 sat mentation maintain O2 sats greater than 92% -Continue duo nebs every 6 hours while awake and every 2 hours as needed -Continue budesonide inhalation twice daily -Continue Rocephin and Zithromax -Solu-Medrol 60 mg every 6 hours -Ibuprofen for pleuritic chest pain -Cuff medication for symptomatic relief DVT prevention -Compression devices
[2018-04-22] MEDS: Senna/Docusate Sodium 8.6/50 MG Tablet PO SCH ×2 (08:56→22:22)
[2018-04-22] MEDS: Ibuprofen 600 MG Tablet PO PRN (08:56)
[2018-04-22] MEDS: guaiFENesin/Dextromethorphan 200 MG/20 MG 10 ML UDC PO PRN ×2 (09:06→15:59)
[2018-04-22] MEDS: Azithromycin Inj 500 MG in Sodium Chlor 0.9% Inj 250 ML IV.SIG SCH (22:13)
[2018-04-23] MEDS: guaiFENesin/Dextromethorphan 200 MG/20 MG 10 ML UDC PO PRN (00:05)
[2018-04-23] MEDS: MethylPREDNISolone Sod Succinate Inj 125 MG/2 ML Vial IV.PUSH SCH ×4 (03:07→20:10)
--- NOTE | 2018-04-23 07:53 | P.PN ---
Subjective Interval history: Follow-up acute respiratory failure secondary to asthma exacerbation and pneumonia. Patient seen and examined, still on 5 L nasal cannula. Still continues to complain of shortness of breath with exertion. She does not feel really any improved at all. Afebrile overnight. Vital signs are stable. Physical Exam Vital signs: Vital Signs 04/22/18 08:00 04/22/18 11:13 04/22/18 12:00 Temperature 97.0 F L 97.7 F Pulse Rate 73 81 Respiratory Rate 18 18 Blood Pressure 117/75 120/68 Pulse Oximetry 92 L 93 L 04/22/18 13:34 04/22/18 15:50 04/22/18 20:00 Temperature 97.9 F 97.4 F L Pulse Rate 73 82 89 Respiratory Rate 20 18 20 Blood Pressure 120/59 L 130/70 Pulse Oximetry 90 L 93 L 04/22/18 20:01 04/23/18 00:00 04/23/18 07:21 Temperature 96.4 F L Pulse Rate 89 82 75 Respiratory Rate 18 Blood Pressure 124/75 Pulse Oximetry 91 L 92 L Intake & Output 04/22/18 04/23/18 04/23/18 18:59 06:59 18:59 Intake Total 820 / 820 1070 / 1070 Output Total Balance 820 / 820 1069 / 1069 Weight 85 kg Intake: IV 350 / 350 Azithromycin Inj 500 MG In NS 250 / 250 Inj 250 ML @ 250 mls/hr IV.SIG Q24H [facility] Rx#:[id number] Rocephin Inj 1,000 MG In NS Inj 100 / 100 100 ML @ 200 mls/hr IV.SIG Q24H [facility] Rx#:[id number] Oral 820 / 820 720 / 720 Output: Stool Other: # Voids 2 3 Date of Last Bowel Movement 04/21/18 04/21/18 # Bowel Movements 1 Narrative: GENERAL: Well-developed, well-nourished, in no acute distress. alert and orientated HEENT: Head is normocephalic without any lesions or masses noted. Facial features are symmetric. Eyes: Extraocular muscles are intact. Conjunctivae were clear. NECK: Supple without any masses. Trachea midline no deviation. No JVD, CARDIAC: Regular rhythm, regular rate. S1/S2 are heard. No murmurs gallops or rubs. LUNGS: Lung sounds present throughout. No wheezing in upper bilateral lobes. No rhonchi or rales. No use of accessory muscles on inspiration or expiration. ABDOMEN: Soft, nontender. Nondistended. Bowel sounds heard in all 4 quadrants. No organomegaly or masses. Negative rebound, negative guarding EXTREMITIES: No edema, pulses are equal bilaterally. No cyanosis or clubbing NEUROLOGY: Mood and affect appear appropriate. Cranial nerves II through XII grossly intact. Moving all extremities, speech is clear Results - Labs CBC & Chem 7: 04/21/18 06:22 04/21/18 06:22 Assessment and Plan - Assessment (1) Acute respiratory failure with hypoxia Code(s): J96.01 - Acute respiratory failure with hypoxia Status: Acute (2) Acute asthma Code(s): J45.909 - Unspecified asthma, uncomplicated Status: Acute - Plan Acute hypoxic respiratory failure secondary to asthma exacerbation and bilateral community-acquired pneumonia -CTA reviewed from 04/19/18 from prior presentation, showing perihilar bilateral infiltrates. -Continue O2 sat mentation maintain O2 sats greater than 92% -Continue duo nebs every 6 hours while awake and every 2 hours as needed -Continue budesonide inhalation twice daily -Continue Rocephin and Zithromax -Solu-Medrol 60 mg every 6 hours -Ibuprofen for pleuritic chest pain -Cough management for symptomatic relief. -Await improvement. Supportive care. DVT prevention -Compression devices
[2018-04-23] MEDS: Senna/Docusate Sodium 8.6/50 MG Tablet PO SCH ×2 (08:10→20:28)
--- NOTE | 2018-04-23 19:27 | MB ---
cc: Amarilys Panda MD DATE: 04/23/2018 REASON FOR CONSULTATION: Exacerbation of asthma. HISTORY OF PRESENT ILLNESS: Nicki is a 22-year-old female with a known history of bronchial asthma since about age 17. She has not been using any inhalation for about a year or more. For the last 3-4 days, she has had increasing shortness of breath, progressively worse. She had a visit to the emergency room after which she left against medical advice only to return with worsening symptomatology and admitted on 04/21/2018 for an asthma exacerbation. Feeling somewhat better. Has a cough, small amount of whitish yellowish sputum. No hemoptysis. No fever, no chills. ALLERGIES: THE PATIENT HAS NO KNOWN ALLERGIES TO ENVIRONMENTAL AGENTS; HOWEVER, SHE IS ALLERGIC TO PENICILLIN. PAST MEDICAL HISTORY: Bronchial asthma. FAMILY HISTORY: Notable for a mother who has bronchial asthma as well. SOCIAL HISTORY: The patient does smoke for a few years now and currently smokes about 5 cigarettes a day for the last 7 years, does not drink any alcohol, does not use drugs. CURRENT MEDICATIONS: Include albuterol inhalation, Zithromax, budesonide, ceftriaxone, guaifenesin. ALLERGIES: PENICILLIN. REVIEW OF SYSTEMS: A 12-point review of systems as per HPI or past history, otherwise negative. PHYSICAL EXAMINATION: GENERAL: The patient is alert. VITAL SIGNS: Temperature 97, pulse 90, respirations 20, blood pressure 130/80, oxygen saturation 94% on oxygen 3 liters nasal cannula. HEENT: Unremarkable. Eyes without icterus. NECK: Without adenopathy or thyroid enlargement. Central trachea. CHEST: Without dullness to percussion. Scattered rhonchi and wheezes on auscultation. CARDIOVASCULAR: PMI not appreciated. S1, S2 audible. No murmur, no rub. ABDOMEN: Lax. Bowel sounds audible. EXTREMITIES: No clubbing, cyanosis or edema. IMPRESSION: 1. Respiratory failure. 2. Exacerbation of bronchial asthma. PLAN: The patient seems improved with antibiotic therapy and bronchodilator therapy; however, she is still wheezing and she is significantly hypoxic. In view of the above, we will proceed with CT angiography to rule out the possibility of underlying pulmonary embolization. Continue antibiotics as well as bronchodilators. Follow up her course closely and depending on progress, proceed further. I do thank you for asking me to partake in Ms. Stonecypher's care. MD MARZENA Coon/marion , 06:28 PM , 06:38 PM
[2018-04-23] MEDS: Azithromycin Inj 500 MG in Sodium Chlor 0.9% Inj 250 ML IV.SIG SCH (20:11)
[2018-04-24] MEDS: Ibuprofen 600 MG Tablet PO PRN ×3 (00:11→20:28)
[2018-04-24] MEDS: MethylPREDNISolone Sod Succinate Inj 125 MG/2 ML Vial IV.PUSH SCH ×4 (02:24→20:25)
[2018-04-24 08:06] LABS: ABG Base Excess -4.3 mmol/L (-2-2); ABG PCO2 28 mmHg (38-42); ABG PO2 63 mmHg (61-120)
--- NOTE | 2018-04-24 08:24 | P.PN ---
Subjective Interval history: Follow-up acute respiratory failure and asthma exacerbation. Patient seen and examined, lying in bed comfortably no apparent distress. Continues on 4 L nasal cannula. She does state that she does feel improved overnight. Still complains of some shortness of breath with exertion. Will attempt physical therapy this morning. Encourage increase in activity. ABG and chest x-ray ordered, pending today. Patient also does have some type of arrhythmia on exam today, probably sinus arrhythmia, an EKG will be ordered. Will start cardiac telemetry. Patient denies any chest pain. Afebrile. Vital signs stable. Physical Exam Vital signs: Vital Signs 04/23/18 12:00 04/23/18 13:40 04/23/18 17:43 Temperature 97.9 F 96.9 F L Pulse Rate 83 102 H 72 Respiratory Rate 19 16 19 Blood Pressure 121/58 L 136/80 Pulse Oximetry 95 90 L 04/23/18 20:00 04/23/18 20:01 04/24/18 00:00 Temperature 98.8 F Pulse Rate 68 67 Respiratory Rate 18 20 Blood Pressure 145/84 H Pulse Oximetry 95 92 L 04/24/18 07:24 Temperature Pulse Rate 66 Respiratory Rate 20 Blood Pressure Pulse Oximetry 94 L Intake & Output 04/23/18 04/24/18 04/24/18 18:59 06:59 18:59 Intake Total 780 / 780 465 / 465 Output Total 700 / 700 Balance 80 / 80 465 / 465 Weight 87.1 kg Intake: IV 100 / 100 Rocephin Inj 1,000 MG In NS Inj 100 / 100 100 ML @ 200 mls/hr IV.SIG Q24H [facility] Rx#:[id number] Oral 780 / 780 365 / 365 Output: Urine 700 / 700 Other: # Voids 3 Date of Last Bowel Movement 04/22/18 Narrative: GENERAL: Well-developed, well-nourished, in no acute distress. alert and orientated HEENT: Head is normocephalic without any lesions or masses noted. Facial features are symmetric. Eyes: Extraocular muscles are intact. Conjunctivae were clear. NECK: Supple without any masses. Trachea midline no deviation. No JVD, CARDIAC: Sinus arrhythmia. S1/S2 are heard. No murmurs gallops or rubs. LUNGS: Lung sounds present throughout. No wheezing in upper bilateral lobes. Still diminished in the right posterior lower lobe. No rhonchi or rales. No use of accessory muscles on inspiration or expiration. ABDOMEN: Soft, nontender. Nondistended. Bowel sounds heard in all 4 quadrants. No organomegaly or masses. Negative rebound, negative guarding EXTREMITIES: No edema, pulses are equal bilaterally. No cyanosis or clubbing NEUROLOGY: Mood and affect appear appropriate. Cranial nerves II through XII grossly intact. Moving all extremities, speech is clear Results - Labs CBC & Chem 7: 04/21/18 06:22 04/21/18 06:22 Laboratory Results - last 24 hr 04/24/18 07:55 Puncture Site Right radial Patient Temperature 98.6 O2 Saturation 91 ABG pH 7.45 H ABG pCO2 28 L ABG pO2 63 ABG HCO3 19 L ABG O2 Content 20.1 H ABG Base Excess -4.3 L ABG Methemoglobin 1.1 Kenney Test Present Hemoglobin 15.8 Carboxyhemoglobin 1.1 O2 Delivery Device Nasal cannula Liter Flow 5.00 Inspired O2 40 Critical Value No Assessment and Plan - Assessment (1) Acute respiratory failure with hypoxia Code(s): J96.01 - Acute respiratory failure with hypoxia Status: Acute (2) Acute asthma Code(s): J45.909 - Unspecified asthma, uncomplicated Status: Acute - Plan Acute hypoxic respiratory failure secondary to asthma exacerbation and bilateral community-acquired pneumonia -CTA reviewed from 04/19/18 from prior presentation, showing perihilar bilateral infiltrates. -Continue supplemental O2, O2 sats greater than 92% -Continue duo nebs every 6 hours while awake and every 2 hours as needed -Continue budesonide inhalation twice daily -Continue Rocephin and Zithromax -Solu-Medrol 60 mg every 6 hours -Ibuprofen for pleuritic chest pain -Cough management for symptomatic relief. -Await improvement. Supportive care. -Pulmonary and last night to see patient, will continue current treatment. Incentive spirometer and continue EZ Pap. -Physical therapy consulted, input and recommendations pending. Encourage increase in activity. -Awaiting chest x-ray and ABG this morning. DVT prevention -Compression devices. Ambulation. Discharge Planning: Still requiring supplemental O2. Awaiting clinical improvement.
--- NOTE | 2018-04-24 09:30 | XR ---
EXAM DATE: 04/24/2018 8:00 AM EDT AGE/SEX: 22 years / Female INDICATIONS: Short of breath. CLINICAL DATA: This is the patient's subsequent encounter. Patient reports that signs and symptoms h ave been present for 2 days and indicates a pain score of 0/10. MEDICAL/SURGICAL HISTORY: Asthma. None. COMPARISON: [facility], CHEST 2V PA&LAT, 04/20/2018. . FINDINGS: Portable AP view of the chest demonstrates a normal-sized cardiac silhouette. Lungs are underinflated and there is mild bibasilar opacity. No pneumothorax is identified. Bones and soft tissues demonstra te no acute finding. CONCLUSION: Underinflation with new mild bibasilar opacity representing either subsegmental atelectasis or consol idation. The costophrenic sulci as are slightly blunted bilaterally which could indicate trace pleura l fluid. Electronically signed by: Iron Nguyễn MD 04/24/2018 9:29 AM EDT
[2018-04-24] MEDS: Senna/Docusate Sodium 8.6/50 MG Tablet PO SCH ×2 (10:10→20:26)
[2018-04-24 10:44] LABS: Baso % (Auto) 0.3 % (0.0-2.0); Eos % (Auto) 0.1 % (0.0-4.0); Hemoglobin 15.4 gm/dL (11.6-15.3); Lymph # (Auto) 0.8 th/mm3 (1.0-4.8); Lymph % (Auto) 7.6 % (9.0-44.0); Mean Corpuscular HGB Conc 33.4 % (32.0-36.0); Mean Corpuscular Hemoglobin 30.7 pg (27.0-34.0); Mean Corpuscular Volume 91.9 fL (80.0-100.0); Mean Platelet Volume 8.4 fL (7.0-11.0); Mono # (Auto) 0.2 th/mm3 (0.0-0.9); Mono % (Auto) 1.6 % (0.0-8.0); Neut # (Auto) 9.2 th/mm3 (1.8-7.7); Neut % (Auto) 90.4 % (16.0-70.0); Platelet Count 304 th/mm3 (150-450); Red Cell Distribution Width 12.3 % (11.6-17.2); White Blood Count 10.3 th/mm3 (4.0-11.0)
[2018-04-24 11:07] LABS: Potassium 3.6 meq/L (3.5-5.1)
[2018-04-24 11:23] LABS: Calcium 8.8 mg/dL (8.5-10.1); Carbon Dioxide 20.8 meq/L (21.0-32.0)
[2018-04-24] MEDS: Azithromycin Inj 500 MG in Sodium Chlor 0.9% Inj 250 ML IV.SIG SCH (20:25)
[2018-04-24] MEDS: guaiFENesin/Dextromethorphan 200 MG/20 MG 10 ML UDC PO PRN (20:26)
--- NOTE | 2018-04-24 21:20 | ECG ---
Date Performed: 04/24/2018 Time Performed: 09:36:47 PTAGE: 22 years EKG: Sinus rhythm WITH SINUS ARRHYTHMIA NORMAL ECG NO PREVIOUS TRACING DOCTOR: Hayes Alegre Interpretating Date/Time 04/24/2018 21:18:17
[2018-04-25] MEDS: MethylPREDNISolone Sod Succinate Inj 125 MG/2 ML Vial IV.PUSH SCH ×4 (02:17→20:07)
--- NOTE | 2018-04-25 09:49 | P.PN ---
Subjective Interval history: Follow up asthma exacerbation, bilateral pneumonia and respiratory failure. Patient seen and examined. No acute events overnight. No new complaints. Denies any chest pain. Has been ambulating and moving, shortness of breath has improved slightly. Afebrile. Vital signs stable. Still requiring 5 L nasal cannula. Pulmonology following. Physical Exam Vital signs: Vital Signs 04/24/18 12:00 04/24/18 13:42 04/24/18 15:28 Temperature 97.6 F Pulse Rate 84 94 H Respiratory Rate 20 18 Blood Pressure 148/65 H Pulse Oximetry 92 L 92 L 04/24/18 16:00 04/24/18 20:00 04/24/18 20:07 Temperature 98.0 F 96.2 F L Pulse Rate 76 81 64 Respiratory Rate 20 20 18 Blood Pressure 127/66 115/78 Pulse Oximetry 95 93 L 95 04/25/18 00:00 04/25/18 04:00 04/25/18 07:35 Temperature 96.4 F L 96.8 F L Pulse Rate 70 58 L 73 Respiratory Rate 20 20 18 Blood Pressure 119/72 117/74 Pulse Oximetry 94 L 92 L 04/25/18 07:46 Temperature 97.3 F L Pulse Rate 65 Respiratory Rate 20 Blood Pressure 118/68 Pulse Oximetry 92 L Intake & Output 04/24/18 04/25/18 04/25/18 18:59 06:59 18:59 Intake Total 1930 / 1930 830 / 830 Output Total 200 / 200 Balance 1730 / 1730 830 / 830 Weight 89.5 kg Intake: IV 250 / 250 350 / 350 Azithromycin Inj 500 MG In NS 250 / 250 250 / 250 Inj 250 ML @ 250 mls/hr IV.SIG Q24H HONEY Rx#:[id number] Rocephin Inj 1,000 MG In NS Inj 100 / 100 100 ML @ 200 mls/hr IV.SIG Q24H HONEY Rx#:[id number] Oral 1680 / 1680 480 / 480 Output: Urine 200 / 200 Other: # Voids 6 2 Date of Last Bowel Movement 04/23/18 04/24/18 # Bowel Movements 1 Narrative: GENERAL: Well-developed, well-nourished, in no acute distress. alert and orientated HEENT: Head is normocephalic without any lesions or masses noted. Facial features are symmetric. Eyes: Extraocular muscles are intact. Conjunctivae were clear. NECK: Supple without any masses. Trachea midline no deviation. No JVD, CARDIAC: Sinus arrhythmia. S1/S2 are heard. No murmurs gallops or rubs. LUNGS: Lung sounds present throughout. No wheezing in upper bilateral lobes. Still diminished in the right posterior lower lobe. No rhonchi or rales. No use of accessory muscles on inspiration or expiration. ABDOMEN: Soft, nontender. Nondistended. Bowel sounds heard in all 4 quadrants. No organomegaly or masses. Negative rebound, negative guarding EXTREMITIES: No edema, pulses are equal bilaterally. No cyanosis or clubbing NEUROLOGY: Mood and affect appear appropriate. Cranial nerves II through XII grossly intact. Moving all extremities, speech is clear Results - Labs CBC & Chem 7: 04/24/18 09:20 04/24/18 09:20 Laboratory Results - last 24 hr 04/24/18 04/24/18 09:20 09:20 CBC w Diff Auto diff final WBC 10.3 RBC 5.00 Hgb 15.4 H Hct 46.0 MCV 91.9 MCH 30.7 MCHC 33.4 RDW 12.3 Plt Count 304 MPV 8.4 Neut % (Auto) 90.4 H Lymph % (Auto) 7.6 L Stearns % (Auto) 1.6 Eos % (Auto) 0.1 Baso % (Auto) 0.3 Neut # (Auto) 9.2 H Lymph # (Auto) 0.8 L Stearns # (Auto) 0.2 Eos # (Auto) 0.0 Baso # (Auto) 0.0 WBC Differential . Differential Comment . Sodium 141 Potassium 3.6 Chloride 106 Carbon Dioxide 20.8 L Anion Gap 14 BUN 20 H Creatinine 1.10 H Estimated GFR 63 L Random Glucose 178 H Calcium 8.8 Assessment and Plan - Assessment (1) Acute respiratory failure with hypoxia Code(s): J96.01 - Acute respiratory failure with hypoxia Status: Acute (2) Acute asthma Code(s): J45.909 - Unspecified asthma, uncomplicated Status: Acute - Plan Acute hypoxic respiratory failure secondary to asthma exacerbation and bilateral community-acquired pneumonia -CTA reviewed from 04/19/18 from prior presentation, showing perihilar bilateral infiltrates. -Continue supplemental O2, O2 sats greater than 92% -Continue duo nebs every 6 hours while awake and every 2 hours as needed -Continue budesonide inhalation twice daily -Continue Rocephin and Zithromax -Solu-Medrol 60 mg every 6 hours -Ibuprofen for pleuritic chest pain -Cough management for symptomatic relief. -Await improvement. Supportive care. -Pulmonary following, will continue current treatment. -Incentive spirometer and continue EZ Pap. -Physical therapy consulted, appreciate input and recommendations. -CXR reviewed from yesterday. Atelectasis with new opacity. Encouraged increase in activity. DVT prevention -Compression devices. Ambulation. Discharge Planning: Still requiring supplemental O2. Awaiting clinical improvement.
[2018-04-25] MEDS: Senna/Docusate Sodium 8.6/50 MG Tablet PO SCH ×2 (13:45→21:10)
--- NOTE | 2018-04-25 14:47 | P.PN ---
Subjective Interval history: alert less sob still needs o2 Physical Exam Vital signs: Vital Signs 04/24/18 15:28 04/24/18 16:00 04/24/18 20:00 Temperature 98.0 F 96.2 F L Pulse Rate 76 81 Respiratory Rate 20 20 Blood Pressure 127/66 115/78 Pulse Oximetry 92 L 95 93 L 04/24/18 20:07 04/25/18 00:00 04/25/18 04:00 Temperature 96.4 F L 96.8 F L Pulse Rate 64 70 58 L Respiratory Rate 18 20 20 Blood Pressure 119/72 117/74 Pulse Oximetry 95 94 L 04/25/18 07:35 04/25/18 07:46 04/25/18 08:00 Temperature 97.3 F L 97.3 F L Pulse Rate 73 65 65 Respiratory Rate 18 20 20 Blood Pressure 118/68 118/68 Pulse Oximetry 92 L 92 L 92 L 04/25/18 09:00 04/25/18 12:00 04/25/18 14:33 Temperature 97.9 F Pulse Rate 72 64 72 Respiratory Rate 15 16 Blood Pressure 116/67 Pulse Oximetry 92 L Intake & Output 04/24/18 04/25/18 04/25/18 18:59 06:59 18:59 Intake Total 1930 / 1930 830 / 830 Output Total 200 / 200 Balance 1730 / 1730 830 / 830 Weight 89.5 kg Intake: IV 250 / 250 350 / 350 Azithromycin Inj 500 MG In NS 250 / 250 250 / 250 Inj 250 ML @ 250 mls/hr IV.SIG Q24H HONEY Rx#:[id number] Rocephin Inj 1,000 MG In NS Inj 100 / 100 100 ML @ 200 mls/hr IV.SIG Q24H HONEY Rx#:[id number] Oral 1680 / 1680 480 / 480 Output: Urine 200 / 200 Other: # Voids 6 2 Date of Last Bowel Movement 04/23/18 04/24/18 # Bowel Movements 1 Narrative: GENERAL: Well-developed, well-nourished, in no acute distress. alert and orientated HEENT: Head is normocephalic without any lesions or masses noted. Facial features are symmetric. Eyes: Extraocular muscles are intact. Conjunctivae were clear. NECK: Supple without any masses. Trachea midline no deviation. No JVD, CARDIAC: Sinus arrhythmia. S1/S2 are heard. No murmurs gallops or rubs. LUNGS: Lung sounds present throughout. No wheezing in upper bilateral lobes. Still diminished in the right posterior lower lobe. No rhonchi or rales. No use of accessory muscles on inspiration or expiration. ABDOMEN: Soft, nontender. Nondistended. Bowel sounds heard in all 4 quadrants. No organomegaly or masses. Negative rebound, negative guarding EXTREMITIES: No edema, pulses are equal bilaterally. No cyanosis or clubbing NEUROLOGY: Mood and affect appear appropriate. Cranial nerves II through XII grossly intact. Moving all extremities, speech is clear Results - Labs CBC & Chem 7: 04/24/18 09:20 04/24/18 09:20 Assessment and Plan - Plan impression asthma exacerbation pna respiratory failyre plan o2 as needed antibx bronchodilators check pft abg.
[2018-04-25] MEDS: Azithromycin Inj 500 MG in Sodium Chlor 0.9% Inj 250 ML IV.SIG SCH (21:09)
[2018-04-26] MEDS: MethylPREDNISolone Sod Succinate Inj 125 MG/2 ML Vial IV.PUSH SCH ×3 (02:34→16:07)
[2018-04-26 07:41] VITALS: RESP 18
--- NOTE | 2018-04-26 08:26 | P.PN ---
Subjective Interval history: Follow-up acute respiratory failure and asthma exacerbation. Patient seen and examined, sitting in bed comfortably in no apparent distress. Patient states she feels much improved. Worked with therapy today, did well. Breath improving with exertion. Still on O2 supplementation. Will attempt to wean today with RT. No acute complaints. Eating well without any nausea or vomiting. Physical Exam Vital signs: Vital Signs 04/25/18 09:00 04/25/18 12:00 04/25/18 14:33 Temperature 97.9 F Pulse Rate 72 64 72 Respiratory Rate 15 16 Blood Pressure 116/67 Pulse Oximetry 92 L 04/25/18 16:00 04/25/18 19:20 04/25/18 20:00 Temperature 98.0 F 97.9 F Pulse Rate 62 77 117 H Respiratory Rate 17 18 16 Blood Pressure 120/70 129/78 Pulse Oximetry 93 L 93 L 94 L 04/26/18 00:00 04/26/18 04:00 04/26/18 07:39 Temperature 97.7 F 96.1 F L Pulse Rate 74 54 L 76 Respiratory Rate 18 16 18 Blood Pressure 125/74 114/61 Pulse Oximetry 95 95 04/26/18 07:41 Temperature Pulse Rate Respiratory Rate Blood Pressure Pulse Oximetry 91 L Intake & Output 04/25/18 04/26/18 04/26/18 18:59 06:59 18:59 Intake Total 300 / 300 400 / 400 Balance 300 / 300 400 / 400 Weight 89.6 kg Intake: IV 400 / 400 Azithromycin Inj 500 MG In NS 300 / 300 Inj 250 ML @ 250 mls/hr IV.SIG Q24H HONEY Rx#:[id number] Rocephin Inj 1,000 MG In NS Inj 100 / 100 100 ML @ 200 mls/hr IV.SIG Q24H HONEY Rx#:[id number] Oral 300 / 300 Other: # Voids 2 2 Date of Last Bowel Movement 04/25/18 Narrative: GENERAL: Well-developed, well-nourished, in no acute distress. alert and orientated HEENT: Head is normocephalic without any lesions or masses noted. Facial features are symmetric. Eyes: Extraocular muscles are intact. Conjunctivae were clear. NECK: Supple without any masses. Trachea midline no deviation. No JVD, CARDIAC: Sinus arrhythmia. S1/S2 are heard. No murmurs gallops or rubs. LUNGS: Lung sounds present throughout. No wheezing in upper bilateral lobes. No rhonchi or rales. No use of accessory muscles on inspiration or expiration. ABDOMEN: Soft, nontender. Nondistended. Bowel sounds heard in all 4 quadrants. No organomegaly or masses. Negative rebound, negative guarding EXTREMITIES: No edema, pulses are equal bilaterally. No cyanosis or clubbing NEUROLOGY: Mood and affect appear appropriate. Cranial nerves II through XII grossly intact. Moving all extremities, speech is clear Results - Labs CBC & Chem 7: 04/24/18 09:20 04/24/18 09:20 Assessment and Plan - Assessment (1) Acute respiratory failure with hypoxia Code(s): J96.01 - Acute respiratory failure with hypoxia Status: Acute (2) Acute asthma Code(s): J45.909 - Unspecified asthma, uncomplicated Status: Acute - Plan Acute hypoxic respiratory failure secondary to asthma exacerbation and bilateral community-acquired pneumonia -CTA reviewed from 04/19/18 from prior presentation, showing perihilar bilateral infiltrates. -Continue supplemental O2, O2 sats greater than 92% -Continue duo nebs every 6 hours while awake and every 2 hours as needed -Continue budesonide inhalation twice daily -Continue Rocephin and Zithromax -Solu-Medrol 60 mg every 6 hours -Ibuprofen for pleuritic chest pain -Cough management for symptomatic relief. -Pulmonary following, will continue current treatment. Appreciate input and recommendations. -Incentive spirometer and continue EZ Pap. -Physical therapy consulted, appreciate input and recommendations. -CXR reviewed from yesterday. Atelectasis with new opacity. Encouraged increase in activity. -Await improvement. Supportive care. DVT prevention -Compression devices. Ambulation. Discharge Planning: Still requiring supplemental O2. Awaiting clinical improvement.
[2018-04-26] MEDS: Senna/Docusate Sodium 8.6/50 MG Tablet PO SCH (09:23)
--- NOTE | 2018-04-26 15:24 | P.DS ---
Date of admission: 04/23/18 09:35 Primary care physician: No Primary Care Physician Anticipated date of discharge: 04/26/18 Brief History from admission: 22-year-old female with known history of asthma, tobacco use who presented hospital because of shortness of breath and dyspnea. Patient was just admitted to the hospital on 04/19/18. Patient left AGAINST MEDICAL ADVICE because she stated she had to go to work. Patient did not improve. Continue to have worsening shortness of breath and it is status continued to worsen so she came back to emergency department for evaluation. Patient again was found to have acute respiratory failure with hypoxia due to asthma. Patient was given updraft treatments, Solu-Medrol emergency department without any significant improvement. Patient now with increased O2 demand on simple mask for O2 supplementation. Discussed with the patient the need for her to remain hospitalized this visit because of her worsening respiratory status. Patient does understand. She states that she will comply and accept treatment. DS: Diagnosis - Discharge Diagnosis (1) Acute respiratory failure with hypoxia Status: Acute (2) Acute asthma Status: Acute DS: Summary Hospital Course: Patient presented with acute hypoxic respiratory failure secondary to asthma exacerbation and bilateral community-acquired pneumonia. CTA reviewed from 04/19 from prior presentation, showing perihilar bilateral infiltrates. Was initially on 6 L NC and weaned down to RA. Was continued on duo nebs every 6 hours while awake and every 2 hours as needed, budesonide inhalation twice daily , IV Rocephin and Zithromax, solu-Medrol 60 mg every 6 hours and Ibuprofen for pleuritic chest pain. Cough management as well for symptomatic relief. Pulmonary was consulted and seen patient in hospital. Incentive spirometer and EZ Pap while hospitalized. PT also consulted and evaluated. Patient improved at day of discharge, passed walk test, on RA she was 92% on RA and after walking 250 ft she was 89%. This does not qualify for O2 at home. Patient is eager to get home. Advised to take medications as scheduled. To rest and continue IS at home. Continue to increase activity and follow up with pulmonology and PCP on discharge. - Time Spent with Patient Total time spent providing and/or coordinating discharge services: Greater than 30 minutes - Quality: VTE Deep Vein Thrombosis/Pulmonary Embolism Present on Admission: No Exam Vital signs: Vital Signs 04/25/18 16:00 04/25/18 19:20 04/25/18 20:00 Temperature 98.0 F 97.9 F Pulse Rate 62 77 117 H Respiratory Rate 17 18 16 Blood Pressure 120/70 129/78 Pulse Oximetry 93 L 93 L 94 L 04/26/18 00:00 04/26/18 04:00 04/26/18 07:39 Temperature 97.7 F 96.1 F L Pulse Rate 74 54 L 76 Respiratory Rate 18 16 18 Blood Pressure 125/74 114/61 Pulse Oximetry 95 95 04/26/18 07:41 04/26/18 08:00 04/26/18 12:00 Temperature 97.9 F 97.3 F L Pulse Rate 75 74 Respiratory Rate 18 18 Blood Pressure 141/68 H 129/69 Pulse Oximetry 91 L 93 L 95 04/26/18 14:15 04/26/18 14:39 Temperature Pulse Rate Respiratory Rate Blood Pressure Pulse Oximetry 98 94 L Intake & Output 04/25/18 04/26/18 04/26/18 18:59 06:59 18:59 Intake Total 300 / 300 400 / 400 Balance 300 / 300 400 / 400 Weight 89.6 kg Intake: IV 400 / 400 Azithromycin Inj 500 MG In NS 300 / 300 Inj 250 ML @ 250 mls/hr IV.SIG Q24H HONEY Rx#:[id number] Rocephin Inj 1,000 MG In NS Inj 100 / 100 100 ML @ 200 mls/hr IV.SIG Q24H HONEY Rx#:[id number] Oral 300 / 300 Other: # Voids 2 2 Date of Last Bowel Movement 04/25/18 Narrative: GENERAL: Well-developed, well-nourished patient in [facility]. SKIN: Warm and dry. No rash. HEAD: Normocephalic. Atraumatic. EYES: Pupils equal and round. No scleral icterus. No injection or drainage. ENT: No nasal bleeding or discharge. Mucous membranes pink and moist. NECK: Supple. Trachea midline. CARDIOVASCULAR: Regular rate and rhythm. S1, S2 noted. No murmur appreciated. RESPIRATORY: No accessory muscle use. Clear to auscultation. Breath sounds equal bilaterally. GASTROINTESTINAL: Abdomen soft, non-tender, nondistended. Normoactive bowel sounds x4. MUSCULOSKELETAL: No obvious deformities. Extremities without clubbing, cyanosis , or edema. NEUROLOGICAL: Awake and alert. No obvious cranial nerve deficits. Motor grossly within normal limits. 5/5 muscle strength in bilateral upper and lower extremities. Normal speech. PSYCHIATRIC: Appropriate mood and affect; insight and judgment normal. Results Procedures completed during hospitalization: None. Labs on day of discharge: Labs from last 24 hours 04/24/18 09:20 RUDI Screen Neg - Impressions ITS Impressions Chest X-Ray 04/24/18 00:00 CONCLUSION: Underinflation with new mild bibasilar opacity representing either subsegmental atelectasis or consolidation. The costophrenic sulci as are slightly blunted bilaterally which could indicate trace pleural fluid. Discharge Plan - Discharge Disposition Patient Disposition: Discharge Home - Discharge Condition Condition: Serious - Discharge Order Discharge Orders: Discharge Order (Routine); Ordered 04/26/18 Ordered By: Caridad Rodriguez - Physicians Team Primary Care Provider: Primary Care Dang Valdez Attending Provider: Leon Myles Other Providers: Amarilys Panda MD
[2018-04-26 15:50] VITALS: BP 136/72; PULSE 96; TEMP 98.7; O2SAT 93
--- NOTE | 2018-04-26 16:31 | P.PNPL ---
Subjective Interval history: 22 YOWF with Br asthma Feels better Wheezing improved Ambulates Physical Exam Vital signs: Vital Signs 04/25/18 19:20 04/25/18 20:00 04/26/18 00:00 Temperature 97.9 F 97.7 F Pulse Rate 77 117 H 74 Respiratory Rate 18 16 18 Blood Pressure 129/78 125/74 Pulse Oximetry 93 L 94 L 95 Pulse Oximetry [Exertion on Room Air] Pulse Oximetry [Resting on Room Air] 04/26/18 04:00 04/26/18 07:39 04/26/18 07:41 Temperature 96.1 F L Pulse Rate 54 L 76 Respiratory Rate 16 18 Blood Pressure 114/61 Pulse Oximetry 95 91 L Pulse Oximetry [Exertion on Room Air] Pulse Oximetry [Resting on Room Air] 04/26/18 08:00 04/26/18 12:00 04/26/18 14:15 Temperature 97.9 F 97.3 F L Pulse Rate 75 74 Respiratory Rate 18 18 Blood Pressure 141/68 H 129/69 Pulse Oximetry 93 L 95 98 Pulse Oximetry [Exertion on Room Air] Pulse Oximetry [Resting on Room Air] 04/26/18 14:39 04/26/18 15:10 04/26/18 15:49 Temperature 98.7 F Pulse Rate 96 H Respiratory Rate 18 Blood Pressure 136/72 Pulse Oximetry 94 L 93 L Pulse Oximetry [Exertion on Room Air] 89 L Pulse Oximetry [Resting on Room Air] 92 L Intake & Output 04/25/18 04/26/18 04/26/18 18:59 06:59 18:59 Intake Total 300 / 300 400 / 400 Balance 300 / 300 400 / 400 Weight 89.6 kg Intake: IV 400 / 400 Azithromycin Inj 500 MG In NS 300 / 300 Inj 250 ML @ 250 mls/hr IV.SIG Q24H HONEY Rx#:[id number] Rocephin Inj 1,000 MG In NS Inj 100 / 100 100 ML @ 200 mls/hr IV.SIG Q24H HONEY Rx#:[id number] Oral 300 / 300 Other: # Voids 2 2 Date of Last Bowel Movement 04/25/18 GENERAL: WBWN,NAD SKIN: Warm and dry. HEAD: Normocephalic. EYES: No scleral icterus. No injection or drainage. NECK: Supple, trachea midline. No JVD or lymphadenopathy. CARDIOVASCULAR: Regular rate and rhythm without murmurs, gallops, or rubs. RESPIRATORY: Breath sounds equal bilaterally. No accessory muscle use. GASTROINTESTINAL: Abdomen soft, non-tender, nondistended. MUSCULOSKELETAL: No cyanosis, or edema. BACK: Nontender without obvious deformity. No CVA tenderness. Assessment and Plan - Plan IMPRESSION: Bronchial asthma exac Hypoxia improved PLAN: Aerosol nebs PO steroids Stable on RA DC plans for home
== END 2018-04-26 18:50 | disposition home or self-care (01) ==
LOC: PHEDA 18:14 → PHED 18:14 → PH3 22:11
PROVIDERS: ADMIT Internal Medicine; ATTEND Internal Medicine